=== PATIENT | female | born 1990 | race Caucasian/White ===

== ENCOUNTER → 2017-07-30 11:19 | Outpatient (CLI) | payer OTHER, MEDICAID, SELFPAY ==
--- NOTE | 2017-07-30 11:22 | DI.RAD.S_ITS ---
PROCEDURE: XR CHEST 2V INDICATIONS: chest pain TECHNIQUE: 2 views of the chest were acquired. COMPARISON: None. FINDINGS: Surgical changes and devices: None. Lungs and pleura: No pleural effusions or pneumothorax. Lungs are clear. Mediastinum: Mediastinal contours are normal. Heart size is normal. Bones and chest wall: No suspicious bony abnormalities. Soft tissues appear unremarkable. IMPRESSION: Normal for age, source of current symptoms is not seen. Dictated by: Owen Lan M.D. on 07/30/2017 at 12:15 Approved by: Owen Lan M.D. on 07/30/2017 at 12:16
== END ==
PROVIDERS: PCP Family Medicine; Visit Provider Family Medicine
DX: R07.9 Chest pain, unspecified (principal)
CPT/HCPCS: 71046

== ENCOUNTER 2018-06-14 09:48 | Emergency (ER) | payer SELFPAY ==
[2018-06-14 10:00] VITALS: BP 120/73; PULSE 66; RESP 12; TEMP 36.8; O2SAT 100
--- NOTE | 2018-06-14 10:04 | ED.ARRPALP ---
HPI - Arrhythmia/Palpitations General Chief Complaint: Arrhythmia/Palpitations Stated Complaint: Heart racing, light headed, shaky Time Seen by Provider: 06/14/18 10:03 Source: patient Mode of arrival: ambulatory Limitations: no limitations History of Present Illness HPI narrative: Patient is a 28-year-old female here for evaluation of feeling like her heart is racing and feeling lightheaded. She states the symptoms started yesterday afternoon. 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 This is not necessarily unusual for her. She states that afterwards she felt like her heart was racing. She stated that she ?tried not to get anxious ?about it. Did have some shortness of breath with it yesterday but that has now resolved. No chest pain. Today continues to have some sensation that her heart is racing but none at the time of my evaluation. She does wear a fit bit and stated that yesterday her heart rate was 103 when she was feeling the symptoms. Never had anything like this before. Related Data Allergies Allergy/AdvReac Type Severity Reaction Status Date / Time No Known Drug Allergies Allergy Unknown Verified 07/30/17 10:12 Review of Systems Constitutional Denies fever(s), Denies headache(s) and Denies weakness Comments: ?Jittery? ENT Ears, Nose, Mouth, and Throat: Denies vertigo, Reports dizziness and Denies headache(s) Cardiovascular Denies chest pain, Reports rapid heart rate, Reports palpitations and Reports dyspnea (Yesterday not today) Respiratory Reports dyspnea (Yesterday not today) Gastrointestinal Gastrointestinal: Denies abdominal pain, Denies nausea and Denies vomiting Musculoskeletal Denies myalgias and Denies arthralgias Integumentary/Breasts Denies lesions and Denies rash Neurologic Denies vertigo, Reports dizziness, Denies headache(s), Denies radicular pain and Denies weakness Endocrine Reports palpitations Hematologic/Lymphatic Denies easy bleeding and Denies easy bruising [facility] Medical History Healthy adult (Acute) Family History (Updated 09/03/17 @ 15:49 by Omaira Bermeo LPN) Grandmother Breast cancer Hypertension Mother Age: 63 Hypertension Pacemaker Sister Age: 30 Asthma Sister Age: 29 Asthma Grandfather Pacemaker Grandfather Cancer Grandmother Breast cancer Social History Smoking Status: Never smoker alcohol intake: never Family History (Updated 09/03/17 @ 15:49 by Omaira Bermeo LPN) Grandmother Breast cancer Hypertension Mother Age: 63 Hypertension Pacemaker Sister Age: 30 Asthma Sister Age: 29 Asthma Grandfather Pacemaker Grandfather Cancer Grandmother Breast cancer Social History Smoking Status: Never smoker alcohol intake: never Exam Initial Vital Signs Initial Vital Signs: Vital Signs Temperature 98.2 F 06/14/18 10:00 Pulse Rate 66 06/14/18 10:00 Respiratory Rate 12 06/14/18 10:00 Blood Pressure 120/73 06/14/18 10:00 Pulse Oximetry 100 06/14/18 10:00 Const General: cooperative, comfortable, well developed, well groomed and No acute distress Orientation: alert, awake and oriented x3 HENMT Head: normal to inspection and normocephalic Resp Effort & Inspection: normal respiratory effort Auscultation: clear to auscultation bilaterally Cardio Rate: regular rate Rhythm: regular rhythm Pulses: radial pulses present GI Inspection: non-distended Palpation: soft Skin Lesions: no lesions Rashes: no rashes Neuro General: alert, awake and oriented x3 Cognition: normal cognition Speech: speech normal Motor: muscle tone normal throughout Sensory Exam: no sensory deficits noted Extrem General: normal to inspection and capillary refill normal Psych Appearance: grossly normal and well kempt Course Orders Ordered: ED Orders 06/14/18 10:04 EKG-12 Lead Stat 06/14/18 10:10 Complete Blood Count AUTO DIFF Stat Comprehensive Metabolic Panel Stat Lipase Stat Test Serum,Qual Stat Discontinued Medications Sodium Chloride (Normal Saline 0.9%) 1,000 mls @ 1,000 mls/hr IV BOLUS ONE Stop: 06/14/18 11:10 Vital Signs - 8 hr 06/14/18 10:00 Temperature 98.2 F Pulse Rate 66 Respiratory Rate 12 Blood Pressure 120/73 Pulse Oximetry 100 MDM - Arrhythmia/Palpitations Lab Data Attestation: I reviewed the patient's lab results. Result diagrams: 06/14/18 10:10 06/14/18 10:10 Lab Results 06/14/18 06/14/18 06/14/18 Range/Units 10:10 10:10 10:10 WBC 7.2 (4.5-11.0) X10^3/uL RBC 4.82 (4.0-5.2) X10^6/uL Hgb 13.8 (12.0-16.0) g/dL Hct 41.7 (36-46) % MCV 86.4 (80-100) fL MCH 28.6 (26-34) PG MCHC 33.1 (30-36) % RDW 12.7 (11.6-14.8) % Plt Count 323 (150-400) X10^3/uL Neut % (Auto) 66.0 (50-75) % Lymph % (Auto) 23.7 L (25-40) % [place] % (Auto) 7.2 (3-14) % Eos % (Auto) 2.6 (2-4) % Baso % (Auto) 0.5 (0-2) % Neut # (Auto) 4700 (2074-5844) /uL Lymph # (Auto) 1700 (1329-0730) /uL [place] # (Auto) 500 (0-900) /uL Eos # (Auto) 200 (0-450) /uL Baso # (Auto) 0 (0-100) /uL Sodium 139 (137-145) mmol/L Potassium 4.0 (3.4-5.1) mmol/L Chloride 105 (98-107) mmol/L Carbon Dioxide 25 (22-32) mmol/L BUN 9 (7-17) mg/dL Creatinine 0.60 (0.52-1.04) mg/dL Estimated GFR > 60.0 (>60) mL/min BUN/Creatinine Ratio 15.0 (6-22) Glucose 94 (70-100) mg/dL Calcium 9.1 (8.4-10.2) mg/dL Total Bilirubin 0.2 (0.2-1.3) mg/dL AST 21 (14-36) IU/L ALT 28 (9-52) IU/L Alkaline Phosphatase 75 (38-126) U/L Total Protein 7.3 (6.3-8.2) g/dL Albumin 4.3 (3.5-5.0) g/dL Globulin 3.0 (1.7-4.1) g/dL Albumin/Globulin Ratio 1.4 (1.0-2.8) Lipase 41 (23-300) U/L Serum , Qual Negative (Negative) ECG Data Attestation: I personally reviewed and interpreted this ECG as follows: Prior ECG tracings: not available for review Interpretation: Sinus rhythm Normal axis Normal QRS Ventricular rate is [address] T wave changes MDM Narrative Medical decision making narrative: Patient's labs are unremarkable. Her EKG is unremarkable. her monitoring here in the emergency department has been unremarkable. I suspect that her symptoms were related to the caffeine that she was drinking yesterday. We did discuss return precautions and follow-up instructions. She expressed understanding and agreement with plan. Discharge Plan Departure Patient Disposition: Home Clinical Impression: Palpitations Instructions: DI for Palpitations Activity Restrictions/Additional Instructions: You have no restrictions on your activities. like we discussed please talk with her primary doctor about the indications for a Holter monitor. Return to the emergency department for any new or worsening symptoms Referrals: Yana Guerrero DO [Primary Care Provider] -
[2018-06-14 10:21] LABS: Add Manual Diff / Slide Review NO; Basophils Absolute Auto 0 /uL (0-100); Basophils Percent Auto 0.5 % (0-2); Eosinophils Absolute Auto 200 /uL (0-450); Eosinophils Percent Auto 2.6 % (2-4); Hematocrit 41.7 % (36-46); Hemoglobin 13.8 g/dL (12.0-16.0); Lymphocytes Absolute Auto 1700 /uL (1100-4500); Lymphocytes Percent Auto 23.7 % (25-40); Mean Corpuscular HGB Conc 33.1 % (30-36); Mean Corpuscular Hemoglobin 28.6 PG (26-34); Mean Corpuscular Volume 86.4 fL (80-100); Monocytes Absolute Auto 500 /uL (0-900); Monocytes Percent Auto 7.2 % (3-14); Neutrophils Absolute Auto 4700 /uL (1500-7000); Platelet Count 323 X10^3/uL (150-400); Red Blood Cell Count 4.82 X10^6/uL (4.0-5.2); Red Cell Distribution Width 12.7 % (11.6-14.8); White Blood Cell Count 7.2 X10^3/uL (4.5-11.0)
[2018-06-14 10:30] LABS: Alanine Aminotransferase 28 IU/L (9-52); Albumin 4.3 g/dL (3.5-5.0); Albumin Globulin Ratio 1.4 (1.0-2.8); Alkaline Phosphatase 75 U/L (38-126); Aspartate Aminotransferase 21 IU/L (14-36); Bilirubin Total 0.2 mg/dL (0.2-1.3); Blood Urea Nitrogen 9 mg/dL (7-17); Calcium 9.1 mg/dL (8.4-10.2); Carbon Dioxide 25 mmol/L (22-32); Chloride 105 mmol/L (98-107); Estimated Glomerular Filt Rate > 60.0 mL/min (>60); Glucose 94 mg/dL (70-100); HEMOLYSIS < 15 (0-50); Lipase 41 U/L (23-300); Sodium 139 mmol/L (137-145); Total Protein 7.3 g/dL (6.3-8.2)
[2018-06-14 10:47] LABS: Pregnancy Test Serum,Qual Negative (Negative)
[2018-06-14 11:42] VITALS: BP 107/75; PULSE 91; RESP 12; O2SAT 99
== END 2018-06-14 11:42 | disposition home or self-care (01) ==
PROVIDERS: Emergency Provider Emergency Medicine; PCP Family Medicine
DX: R00.2 Palpitations (principal); R42 Dizziness and giddiness; R06.02 Shortness of breath; R25.1 Tremor, unspecified
CPT/HCPCS: 36591; 80053; 83690; 84703; 85025; 93005; 93041; 99283; 99284

== ENCOUNTER → 2018-08-02 12:43 | Outpatient (CLI) | payer OTHER, SELFPAY ==
--- NOTE | 2018-08-16 08:42 | PM.CARDMON.1 ---
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
== END ==
PROVIDERS: PCP Family Medicine; Visit Provider Hospitalist
DX: R00.2 Palpitations (principal)
CPT/HCPCS: 0296T; 0298T

== ENCOUNTER → 2018-12-09 11:58 | Outpatient (CLI) | payer OTHER, SELFPAY ==
[2018-12-09 12:19] LABS: Bacteria Urine None Seen
[2018-12-09 12:24] LABS: Add Manual Diff / Slide Review NO; Basophils Absolute Auto 0 /uL (0-100); Basophils Percent Auto 0.5 % (0-2); Eosinophils Absolute Auto 300 /uL (0-450); Eosinophils Percent Auto 4.3 % (2-4); Hematocrit 42.3 % (36-46); Hemoglobin 14.4 g/dL (12.0-16.0); Lymphocytes Absolute Auto 2300 /uL (1100-4500); Lymphocytes Percent Auto 30.6 % (25-40); Mean Corpuscular Volume 85.3 fL (80-100); Monocytes Absolute Auto 600 /uL (0-900); Monocytes Percent Auto 8.2 % (3-14); Neutrophils Absolute Auto 4200 /uL (1500-7000); Neutrophils Percent Auto 56.4 % (50-75); Platelet Count 378 X10^3/uL (150-400); Red Blood Cell Count 4.95 X10^6/uL (4.0-5.2); Red Cell Distribution Width 12.5 % (11.6-14.8); White Blood Cell Count 7.5 X10^3/uL (4.5-11.0)
[2018-12-09 12:50] LABS: Alanine Aminotransferase 31 IU/L (<35); Albumin 4.6 g/dL (3.5-5.0); Albumin Globulin Ratio 1.8 (1.0-2.8); Alkaline Phosphatase 83 U/L (38-126); Aspartate Aminotransferase 23 IU/L (14-36); Bilirubin Total 0.4 mg/dL (0.2-1.3); Blood Urea Nitrogen 12 mg/dL (7-17); Calcium 9.9 mg/dL (8.4-10.2); Carbon Dioxide 30 mmol/L (22-32); Chloride 102 mmol/L (98-107); Cholesterol 194 mg/dL (140-199); Estimated Glomerular Filt Rate > 60.0 mL/min (>60); Globulin 2.6 g/dL (1.7-4.1); Glucose 77 mg/dL (70-100); HDL Cholesterol 42 mg/dL (40-60); HEMOLYSIS < 15 (0-50); LDL Cholesterol Calculated 139 mg/dL (<100); Potassium 4.8 mmol/L (3.4-5.1); Sodium 141 mmol/L (137-145); Total Protein 7.2 g/dL (6.3-8.2); Triglycerides 66 mg/dL (35-150)
[2018-12-09 13:03] LABS: Appearance Urine UA SL CLOUDY; Bilirubin Urine UA NEGATIVE (NEGATIVE); Color Urine UA YELLOW; Glucose Urine UA NEGATIVE (Negative); Ketones Urine UA NEGATIVE (NEGATIVE); Leukocyte Esterase Urine UA 1+ (NEGATIVE); Nitrite Urine UA NEGATIVE (Negative); Occult Blood Urine UA NEGATIVE (Negative); Protein Urine UA NEGATIVE (Negative); Urobilinogen Urine UA 0.2 E.U./dL (0.2)
[2018-12-09 13:14] LABS: Culture Indicated Urine Specimen Cultured; RBC Urine 0-1/HPF (0-5/HPF); Squamous Epithelial Cell Urine 1-5 /HPF (0-5/HPF); WBC Urine 1-5/HPF (0-5/HPF)
[2018-12-09 13:18] LABS: Thyroid Stimulating Hormone 0.77 uIU/mL (0.47-4.68)
== END ==
PROVIDERS: PCP Family Medicine; Visit Provider Family Medicine
DX: Z00.00 Encounter for general adult medical examination without abnormal findings (principal)
CPT/HCPCS: 36415; 80053; 80061; 81001; 84443; 85025; 87086

== ENCOUNTER 2018-12-28 11:25 | Emergency (ER) | payer OTHER, SELFPAY ==
[2018-12-28 11:36] VITALS: BP 117/72; PULSE 86; RESP 17; TEMP 36.7; O2SAT 100; BMI 23.6
--- NOTE | 2018-12-28 11:47 | ED.ABDPAIN ---
HPI - Abdominal Pain <Jana HerronMILLIE - Last Filed: 12/28/18 14:05> General Chief Complaint: Abdominal Pain Stated Complaint: Acid Reflux, Rt Abd pain Time Seen by Provider: 12/28/18 11:27 Source: patient Mode of arrival: Ambulatory Limitations: no limitations History of Present Illness HPI narrative: 28-year-old female with a history of GERD for the past 6 months, presents emergency department today for worsening abdominal pain and acid reflux over the past 2 weeks. She states she has seen her primary care provider multiple times about this issue, was recently for to Gastroenterology, and has an endoscopy scope scheduled on Wednesday. However, she reports that her pain is intermittently worsened over the past 2 weeks. She states it is an 8/10 burning pain to her epigastric region and down her right side. She denies aggravating or alleviating factors, it is not made worse by eating. She states she ?occasionally spits up food and has associated nausea. She reports increased bloating and gas over the past few weeks. She denies vomiting or diarrhea. Patient's last bowel movement was this morning and she stated it was normal. Patient states she has been to [place] 3 times in the past year and is worried about having a parasite. She has had a left upper chest pain which she describes as a dull aching 2/10 that is worse with her GERD symptoms, she states she has had this for the past year. She has been taking 40 mg of omeprazole twice a day, digestive enzymes, and probiotics. Patient reports she is allergic to Zantac. She denies headaches, chills, fevers, shortness of breath, cough, dysuria, vaginal discharge, or other concerns. Related Data Home Medications Medication Instructions Recorded Confirmed sodium chloride 0.65 % nasal spray 2 spray NASAL BID PRN ml 11/09/18 12/28/18 aerosol tbksvfevsblo-Jp-jidn-minerals 1 tab PO DAILY 12/15/18 12/28/18 omeprazole 20 mg capsule,delayed 20 mg PO DAILY cap 12/15/18 12/28/18 release escitalopram oxalate 10 mg PO DAILY 12/28/18 12/28/18 norgestrel-ethinyl estradiol 1 tab PO DAILY 12/28/18 12/28/18 [Yanna (28)] Previous Rx's Medication Instructions Recorded baclofen 10 mg tablet 10 mg PO BID #14 tab 12/16/18 omeprazole 40 mg capsule,delayed 40 mg PO BID #30 cap 12/16/18 release Allergies Allergy/AdvReac Type Severity Reaction Status Date / Time ranitidine [From Zantac] Allergy Mild throat Verified 12/28/18 11:36 swelling Review of Systems <MILLIE Wilson - Last Filed: 12/28/18 14:05> Review of Systems Narrative: REVIEW OF SYSTEMS: GENERAL: Denies fever, chills, malaise, or wt. loss. HENT: No head trauma, sore throat, or dysphagia. EYES: No loss of vision, double vision, eye pain, or irritation. CARDIOVASCULAR: No palpitations, or orthopnea. RESPIRATORY: No shortness of breath or cough. GASTROINTESTINAL: Complains of abdominal pain, see HPI GENITOURINARY: No flank pain, urinary incontinence, hesitancy, frequency, or dysuria. No vaginal discharge or dyspareunia. Denies concerns for STIs MUSCULOSKELETAL: No pain, weakness, or trauma. INTEGUMENTARY: No rash, lesions, or pruritus. NEURO: No numbness, tingling, memory loss, confusion, or headaches. PSYCH: No behavior or mood changes. Patient History <MILLIE Wilson - Last Filed: 12/28/18 14:05> Medical History Depression (Acute 08/2018) GERD (gastroesophageal reflux disease) (Acute 08/2018) Healthy adult (Acute) Family History Grandmother Breast cancer Hypertension Mother Age: 64 Hypertension Pacemaker Sister Age: 31 Asthma Sister Age: 30 Asthma Grandfather Pacemaker Grandfather Cancer Grandmother Breast cancer Social History Smoking Status: Never smoker alcohol intake: never Substance Use Type: does not use Exam <MILLIE Wilson - Last Filed: 12/28/18 14:05> Initial Vital Signs Initial Vital Signs: Vital Signs Temperature 98.1 F 12/28/18 11:36 Pulse Rate 86 12/28/18 11:36 Respiratory Rate 17 12/28/18 11:36 Blood Pressure 117/72 11/20/19 11:36 Pulse Oximetry 100 12/28/18 11:36 PHYSICAL EXAMINATION: GENERAL: Well groomed, alert, and cooperative. Answers questions promptly and appropriately. Vital signs noted. HENT: Normocephalic, atraumatic. Hearing intact. Oral mucosa is pink and moist. EYES: Conjunctiva pink, sclera white, no periorbital swelling. CARDIOVASCULAR: S1 and S2 sounds normal. Regular rate and rhythm, no murmurs, clicks, or bruits. No pedal edema. RESPIRATORY: Normal respiratory rate, trachea midline, airway patent. No stridor, nasal flaring or accessory muscle use. Lungs are clear in all davis without wheeze, rhonchi, or crackles. GASTROINTESTINAL: Bowel sounds normoactive. Abdomen is soft and diffuse mild abdominal tenderness with deep palpation. No organomegaly, no palpable masses. GENITALURINARY: No flank tenderness. MUSCULOSKELETAL: Normal gait and coordination. Equal tone and mass bilaterally. EXTREMITIES: CMS intact, no pedal edema. SKIN: Warm, dry, soft, appropriate color for ethnicity. No lesions, rashes, or wounds. NEURO: Alert and Oriented X 3. Good coordination. No ataxia, or sensory deficits, or cognitive issues. PSYCH: Appropriate affect and mood. <Vaughn Waite DO - Last Filed: 12/28/18 14:31> Initial Vital Signs Initial Vital Signs: Vital Signs Temperature 98.1 F 12/28/18 11:36 Pulse Rate 86 12/28/18 11:36 Respiratory Rate 17 12/28/18 11:36 Blood Pressure 117/72 12/28/18 11:36 Pulse Oximetry 100 12/28/18 11:36 Course <MILLIE Wilson - Last Filed: 12/28/18 14:05> Course Course Narrative: Patient was given a GI cocktail and ondansetron in the emergency department, she reports slight improvement in her abdominal discomfort. Orders Ordered: ED Orders 12/28/18 11:44 EKG-12 Lead Stat 12/28/18 11:50 Urine Culture Stat Urine Microscopic Stat 12/28/18 12:03 Complete Blood Count AUTO DIFF Stat Comprehensive Metabolic Panel Stat Lipase Stat 12/28/18 12:27 US abdomen limited Stat 12/28/18 12:35 CT abdomen pelvis w con Stat Discontinued Medications Al Hydrox/Mg Hydrox/Simethicone 20 ml/ Lidocaine HCl 15 ml 0 ml PO NOW ONE Stop: 12/28/18 13:13 Last Admin: 12/28/18 13:29 Dose: 35 ml Documented by: MICHELE Sodium Chloride (Normal Saline 0.9%) 1,000 mls @ 1,000 mls/hr IV BOLUS ONE Stop: 12/28/18 12:43 Last Infusion: 12/28/18 13:33 Dose: 0 mls/hr Documented by: Admin: 12/28/18 12:07 Dose: 1,000 mls/hr Documented by: MICHELE Ondansetron HCl (Zofran) 4 mg IV NOW ONE Stop: 12/28/18 11:45 Last Admin: 12/28/18 12:08 Dose: 4 mg Documented by: MICHELE Ondansetron HCl (Zofran) 4 mg IV NOW ONE Stop: 12/28/18 13:13 Last Admin: 12/28/18 13:34 Dose: Not Given Documented by: MICHELE Ondansetron HCl (Zofran Odt) 4 mg SL NOW ONE Stop: 12/28/18 13:57 Consultations Consultation #1: Patient was staffed with Dr. Waite. Vital Signs Vital signs: Vital Signs - 8 hr 12/28/18 11:36 12/28/18 12:16 12/28/18 13:36 Temperature 98.1 F Pulse Rate 86 67 68 Respiratory Rate 17 18 Blood Pressure 117/72 Blood Pressure [Left Arm] 118/68 115/75 Pulse Oximetry 100 100 100 <Vaughn Waite, - Last Filed: 12/28/18 14:31> Orders Ordered: ED Orders 12/28/18 11:44 EKG-12 Lead Stat 12/28/18 11:50 Urine Culture Stat Urine Microscopic Stat 12/28/18 12:03 Complete Blood Count AUTO DIFF Stat Comprehensive Metabolic Panel Stat Lipase Stat 12/28/18 12:27 US abdomen limited Stat 12/28/18 12:35 CT abdomen pelvis w con Stat Discontinued Medications Al Hydrox/Mg Hydrox/Simethicone 20 ml/ Lidocaine HCl 15 ml 0 ml PO NOW ONE Stop: 12/28/18 13:13 Last Admin: 12/28/18 13:29 Dose: 35 ml Documented by: MICHELE Sodium Chloride (Normal Saline 0.9%) 1,000 mls @ 1,000 mls/hr IV BOLUS ONE Stop: 12/28/18 12:43 Last Infusion: 12/28/18 13:33 Dose: 0 mls/hr Documented by: Admin: 12/28/18 12:07 Dose: 1,000 mls/hr Documented by: MICHELE Ondansetron HCl (Zofran) 4 mg IV NOW ONE Stop: 12/28/18 11:45 Last Admin: 12/28/18 12:08 Dose: 4 mg Documented by: MICHELE Ondansetron HCl (Zofran) 4 mg IV NOW ONE Stop: 12/28/18 13:13 Last Admin: 12/28/18 13:34 Dose: Not Given Documented by: MICHELE Ondansetron HCl (Zofran Odt) 4 mg SL NOW ONE Stop: 12/28/18 13:57 Vital Signs Vital signs: Vital Signs - 8 hr 12/28/18 11:36 12/28/18 12:16 12/28/18 13:36 Temperature 98.1 F Pulse Rate 86 67 68 Respiratory Rate 17 18 Blood Pressure 117/72 Blood Pressure [Left Arm] 118/68 115/75 Pulse Oximetry 100 100 100 MDM - Abdominal Pain <MILLIE Wilson - Last Filed: 12/28/18 14:05> Medical Records Attestation: I reviewed the patient's medical records. Lab Data Attestation: I reviewed the patient's lab results. Result diagrams: 12/28/18 12:03 12/28/18 12:03 Labs: Lab Results 12/28/18 12/28/18 12/28/18 Range/Units 11:50 12:03 12:03 WBC 6.9 (4.5-11.0) X10^3/uL RBC 4.51 (4.0-5.2) X10^6/uL Hgb 13.2 (12.0-16.0) g/dL Hct 38.3 (36-46) % MCV 84.9 (80-100) fL MCH 29.3 (26-34) PG MCHC 34.5 (30-36) % RDW 12.6 (11.6-14.8) % Plt Count 318 (150-400) X10^3/uL Neut % (Auto) 68.4 (50-75) % Lymph % (Auto) 19.2 L (25-40) % [place] % (Auto) 8.4 (3-14) % Eos % (Auto) 3.6 (2-4) % Baso % (Auto) 0.4 (0-2) % Neut # (Auto) 4700 (4184-9268) /uL Lymph # (Auto) 1300 (3153-0121) /uL [place] # (Auto) 600 (0-900) /uL Eos # (Auto) 200 (0-450) /uL Baso # (Auto) 0 (0-100) /uL Sodium 140 (137-145) mmol/L Potassium 4.2 (3.4-5.1) mmol/L Chloride 106 (98-107) mmol/L Carbon Dioxide 26 (22-32) mmol/L BUN 8 (7-17) mg/dL Creatinine 0.70 (0.52-1.04) mg/dL Estimated GFR > 60.0 (>60) mL/min BUN/Creatinine Ratio 11.4 (6-22) Glucose 94 (70-100) mg/dL Calcium 9.2 (8.4-10.2) mg/dL Total Bilirubin 0.3 (0.2-1.3) mg/dL AST 30 (14-36) IU/L ALT 31 (<35) IU/L Alkaline Phosphatase 92 (38-126) U/L Total Protein 7.5 (6.3-8.2) g/dL Albumin 4.3 (3.5-5.0) g/dL Globulin 3.2 (1.7-4.1) g/dL Albumin/Globulin Ratio 1.3 (1.0-2.8) Lipase 41 (23-300) U/L Urine RBC None seen (0-5/HPF) Urine WBC 5-10/hpf H (0-5/HPF) Ur Squamous Epith Cells 1-5 /hpf (0-5/HPF) Amorphous Sediment 1+ Urine Bacteria Few (2-10) H (None) Urine Mucus 1+ H (Negative) Ur Culture Indicated? Specimen cultured Point of care testing: Point of Care Testing Test Results Negative Urine Dip Bedside Urine Glucose Negative Bedside Urine Bilirubin - Negative Bedside Urine Ketone - Negative Urine Specific [place] 1.005 Bedside Urine Occult Blood - Negative Bedside Urine pH 6.0 Bedside Urine Protein - Negative Bedside Urine Urobilinogen - Negative Bedside Urine Nitrite - Negative Bedside Urine Leukocytes ++ 125 Esterase Imaging Data US - abdomen: Radiologist's impression: [address] [address] Ultrasound Report Signed Patient: Annika Stevenson [facility]#: [id number] : 1990Acct:[id number] Age/Sex: 28 / FDate of Service: 12/28/18 Loc: ED Accession Number: [id number] Procedure: US abdomen limited Ordering Provider: Jana Herron PROCEDURE: US ABDOMEN LIMITED INDICATIONS: RIGHT UPPER QUADRANT PAIN TECHNIQUE: Real-time focused scanning was performed of the abdomen, with image documentation. COMPARISON: [facility], CT, CT ABDOMEN PELVIS W CON, 12/28/2018, 12:29. FINDINGS: Imaged portions of the liver appear to be within normal limits. No focal liver lesions are evident. The gallbladder is also within normal limits without cholelithiasis or gallbladder wall inflammation. The common bile duct is normal in size at 3 mm. The pancreas appears to be within normal limits. Please not that the right kidney was not adequately imaged. Incidental note is made of a prominent wall bowel loop demonstrating peristalsis within the right lower artery, which is not adequately characterized. The appendix is not clearly seen. IMPRESSION: 1. No cholelithiasis or evidence of acute cholecystitis. 2. Abnormal bowel loop within the right lower quadrant. Please see the dedicated CT of the abdomen and pelvis from 12/28/18 for complete details. Dictated by: Jose Corrales M.D. on 12/28/2018 at 11:57 Approved by: Jose Corrales M.D. on 12/28/2018 at 11:59 CT-Abd: Radiologist's impression: [address] [address] [address] Scan Report Signed Patient: Annika Setvenson [facility]#: [id number] : 1990Acct:[id number] Age/Sex: 28 / FDate of Service: 12/28/18 Loc: ED Accession Number: [id number] Procedure: CT abdomen pelvis w con Ordering Provider: Jana Herron PROCEDURE: CT ABDOMEN PELVIS W CON INDICATIONS: right lower quad pain TECHNIQUE: After the administration of oral and intravenous contrast, 5 mm thick sections acquired from the diaphragms to the symphysis. 5 mm thick coronal and sagittal reformats were performed. For radiation dose reduction, the following was used: automated exposure control, adjustment of mA and/or kV according to patient size. COMPARISON: [facility], , US ABDOMEN LIMITED, 12/28/2018, 12:13. FINDINGS: Image quality: Diagnostic ABDOMEN: Lung bases: Lung bases are clear. Heart size is normal. Solid organs: The liver is slightly hypodense when compared to the spleen, which may be related to timing of the contrast bolus. The gallbladder is within normal limits. The spleen, adrenals, pancreas, and bilateral kidneys are within normal limits. There is no hydronephrosis or definite renal calculus. Peritoneum and bowel: The stomach is unremarkable. The small bowel loops are nondilated. There is an abnormal enhancing bowel loop identified within the right lower quadrant, which correlates to the abnormal bowel loop evident on the ultrasound images, which is compatible with a terminal ileum. The adjacent appendix (image 59, series 2) is normal in size. There is stool are identified throughout the colon. There is no bowel obstruction. No free fluid or loculated fluid collection is seen within the abdomen. There is no free air. Nodes and vessels: No retroperitoneal or mesenteric adenopathy. Aorta and inferior vena cava are normal in caliber. Bones: No acute fracture or suspicious osseous lesion is evident. PELVIS: Genitourinary: Nonspecific moderate wall thickening involving the fundal portion of the urinary bladder (image 36, series 5) is noted. No bladder calculi are identified. The uterus and ovaries are not well evaluated, but are not enlarged. Miscellaneous: Small amount of free fluid is seen within the pelvis. There is no loculated fluid collection or definite free air. No pelvic adenopathy or inguinal hernias are evident. Bones: No suspicious bony lesions. No vertebral body compression fractures. IMPRESSION: 1. Prominent thickening and wall enhancement of the terminal ileum is suggestive most suggestive of infectious ileitis. However, an inflammatory bowel process such as Crohn's disease or ulcerative colitis are difficult to exclude and clinical correlation is recommended. 2. Normal appendix. 3. Minimal free fluid within the pelvis may be physiologic or reactive to the inflammatory process involving the distal ileum. 4. No bowel obstruction or intraperitoneal abscess. 5. Possible mild hepatic steatosis. Dictated by: Jose Corrales M.D. on 12/28/2018 at 12:00 Approved by: Jose Corrales M.D. on 12/28/2018 at 12:05 ECG Data Interpretation: Normal sinus rhythm, rate 67, IL interval 142, QTC 395. No ST elevation or ST depression. No ectopy. T-wave inversion noted to V1. EKG also read by Dr. Waite. MDM Narrative Medical decision making narrative: This is a 28-year-old female who has been seen in her primary care provider's office multiple times for the past 6 months for symptoms of GERD and abdominal pain. She has been referred to a cell attendant helper and has endoscope scheduled for this Wednesday. Differential includes GERD (description of heartburn and ongoing symptoms), hiatal hernia, gallbladder etiology (less likely as lipase is within normal limits and ultrasound shows no stones or sludge), and infectious parasite (possible due to recent travel to [place], complains of GERD, and inflammatory process of the ileus as seen on abdominal CT--however patient was unable to give us a stool sample at this time), or appendicitis (less likely as white blood cell count is within normal limits and no inflammatory process of appendicitis was noted on CT and no systemic symptoms such as fever), autoimmune disorder such as Crohn's (possible due to inflammation seen on CT however, patient denies any blood or mucus in stool but I cannot rule this out at this time.). Patient was encouraged to communicate with her surgeon over the next day to discuss image results and the possibility of a colonoscopy if indicated. She was also encouraged to discussed a possible stool sample with her primary care provider to rule out any parasite infection as she was unable to provide this today. Patient was encouraged to continue taking her PPIs as directed. Return precautions given for new or worsening symptoms. <Vaughn Waite, DO - Last Filed: 12/28/18 14:31> Lab Data Labs: Lab Results 12/28/18 12/28/18 12/28/18 Range/Units 11:50 12:03 12:03 WBC 6.9 (4.5-11.0) X10^3/uL RBC 4.51 (4.0-5.2) X10^6/uL Hgb 13.2 (12.0-16.0) g/dL Hct 38.3 (36-46) % MCV 84.9 (80-100) fL MCH 29.3 (26-34) PG MCHC 34.5 (30-36) % RDW 12.6 (11.6-14.8) % Plt Count 318 (150-400) X10^3/uL Neut % (Auto) 68.4 (50-75) % Lymph % (Auto) 19.2 L (25-40) % [place] % (Auto) 8.4 (3-14) % Eos % (Auto) 3.6 (2-4) % Baso % (Auto) 0.4 (0-2) % Neut # (Auto) 4700 (6888-5905) /uL Lymph # (Auto) 1300 (7186-2128) /uL [place] # (Auto) 600 (0-900) /uL Eos # (Auto) 200 (0-450) /uL Baso # (Auto) 0 (0-100) /uL Sodium 140 (137-145) mmol/L Potassium 4.2 (3.4-5.1) mmol/L Chloride 106 (98-107) mmol/L Carbon Dioxide 26 (22-32) mmol/L BUN 8 (7-17) mg/dL Creatinine 0.70 (0.52-1.04) mg/dL Estimated GFR > 60.0 (>60) mL/min BUN/Creatinine Ratio 11.4 (6-22) Glucose 94 (70-100) mg/dL Calcium 9.2 (8.4-10.2) mg/dL Total Bilirubin 0.3 (0.2-1.3) mg/dL AST 30 (14-36) IU/L ALT 31 (<35) IU/L Alkaline Phosphatase 92 (38-126) U/L Total Protein 7.5 (6.3-8.2) g/dL Albumin 4.3 (3.5-5.0) g/dL Globulin 3.2 (1.7-4.1) g/dL Albumin/Globulin Ratio 1.3 (1.0-2.8) Lipase 41 (23-300) U/L Urine RBC None seen (0-5/HPF) Urine WBC 5-10/hpf H (0-5/HPF) Ur Squamous Epith Cells 1-5 /hpf (0-5/HPF) Amorphous Sediment 1+ Urine Bacteria Few (2-10) H (None) Urine Mucus 1+ H (Negative) Ur Culture Indicated? Specimen cultured Point of care testing: Point of Care Testing Test Results Negative Urine Dip Bedside Urine Glucose Negative Bedside Urine Bilirubin - Negative Bedside Urine Ketone - Negative Urine Specific [place] 1.005 Bedside Urine Occult Blood - Negative Bedside Urine pH 6.0 Bedside Urine Protein - Negative Bedside Urine Urobilinogen - Negative Bedside Urine Nitrite - Negative Bedside Urine Leukocytes ++ 125 Esterase Discharge Plan Departure Patient Disposition: Home Clinical Impression: Ileitis GERD (gastroesophageal reflux disease) Qualifiers: Esophagitis presence: esophagitis presence not specified Qualified Code(s): K21.9 - Gastro-esophageal reflux disease without esophagitis Discharge Date/Time: 12/28/18 14:16 Instructions: DI for Abdominal Pain-Adult Activity Restrictions/Additional Instructions: Thank you for entrusting me with your care today. As discussed, your CT scan shows some inflammation in your small intestine. I suggest calling her cell attendant helper/surgeon to discuss a possible colonoscopy as well to further investigate the inflammatory issues. I also recommend talking to her primary care provider or cell attendant helper about a possible stool panel study to look for infection as you were not able to provide a sample with us today. Please continue to take your medication as instructed. Return to the emergency department for new or worsening symptoms such as uncontrollable vomiting, blood in her stool, blood in her vomit, severe chest pain, shortness of breath, or high fevers. Prescriptions: No Action baclofen 10 mg tablet 10 mg PO BID Qty: 14 RF: 0 omeprazole 40 mg capsule,delayed release(DR/EC) 40 mg PO BID Qty: 30 RF: 0 sodium chloride [Saline Mist] 0.65 % aerosol,spray 2 spray NASAL BID PRN (Reason: Congestion) RF: 0 omeprazole 20 mg capsule,delayed release(DR/EC) 20 mg PO DAILY RF: 0 Multiple Vitamin, Womens Tablet 1 tab PO DAILY RF: 0 [place] (28) 0.3-30 mg-mcg tablet 1 tab PO DAILY RF: 0 escitalopram oxalate 10 mg tablet 10 mg PO DAILY RF: 0 Referrals: Yana Guerrero DO [Primary Care Provider] - <Vaughn Waite DO - Last Filed: 12/28/18 14:31> Sign Out Provider Sign Out Attestation: Dr Waite Co-Sign Statement: I was available for consultation during this patient's emergency department visit. This chart is signed by myself for administrative purposes only. I did not have direct contact with this patient during this visit. They were seen independently by the APC.
[2018-12-28] MEDS: SODIUM CHLORIDE 0.9% 1,000 ML 1000 ML IV (12:07)
[2018-12-28] MEDS: ONDANSETRON 4 MG/2 ML INJ IV (12:08)
[2018-12-28 12:16] VITALS: BP 118/68; PULSE 67; O2SAT 100
[2018-12-28 12:19] LABS: Add Manual Diff / Slide Review NO; Basophils Absolute Auto 0 /uL (0-100); Basophils Percent Auto 0.4 % (0-2); Eosinophils Absolute Auto 200 /uL (0-450); Eosinophils Percent Auto 3.6 % (2-4); Hematocrit 38.3 % (36-46); Hemoglobin 13.2 g/dL (12.0-16.0); Lymphocytes Absolute Auto 1300 /uL (1100-4500); Lymphocytes Percent Auto 19.2 % (25-40); Mean Corpuscular HGB Conc 34.5 % (30-36); Mean Corpuscular Hemoglobin 29.3 PG (26-34); Mean Corpuscular Volume 84.9 fL (80-100); Monocytes Absolute Auto 600 /uL (0-900); Monocytes Percent Auto 8.4 % (3-14); Neutrophils Absolute Auto 4700 /uL (1500-7000); Neutrophils Percent Auto 68.4 % (50-75); Platelet Count 318 X10^3/uL (150-400); Red Blood Cell Count 4.51 X10^6/uL (4.0-5.2); Red Cell Distribution Width 12.6 % (11.6-14.8); White Blood Cell Count 6.9 X10^3/uL (4.5-11.0)
[2018-12-28 12:27] LABS: Alanine Aminotransferase 31 IU/L (<35); Albumin 4.3 g/dL (3.5-5.0); Albumin Globulin Ratio 1.3 (1.0-2.8); Alkaline Phosphatase 92 U/L (38-126); Aspartate Aminotransferase 30 IU/L (14-36); BUN Creatinine Ratio 11.4 (6-22); Bilirubin Total 0.3 mg/dL (0.2-1.3); Blood Urea Nitrogen 8 mg/dL (7-17); Calcium 9.2 mg/dL (8.4-10.2); Carbon Dioxide 26 mmol/L (22-32); Chloride 106 mmol/L (98-107); Estimated Glomerular Filt Rate > 60.0 mL/min (>60); Globulin 3.2 g/dL (1.7-4.1); Glucose 94 mg/dL (70-100); HEMOLYSIS 19 (0-50); Lipase 41 U/L (23-300); Potassium 4.2 mmol/L (3.4-5.1); Sodium 140 mmol/L (137-145); Total Protein 7.5 g/dL (6.3-8.2)
--- NOTE | 2018-12-28 12:27 | DI.US.S_ITS ---
PROCEDURE: US ABDOMEN LIMITED INDICATIONS: RIGHT UPPER QUADRANT PAIN TECHNIQUE: Real-time focused scanning was performed of the abdomen, with image documentation. COMPARISON: [facility], CT, CT ABDOMEN PELVIS W CON, 12/28/2018, 12:29. FINDINGS: Imaged portions of the liver appear to be within normal limits. No focal liver lesions are evident. The gallbladder is also within normal limits without cholelithiasis or gallbladder wall inflammation. The common bile duct is normal in size at 3 mm. The pancreas appears to be within normal limits. Please not that the right kidney was not adequately imaged. Incidental note is made of a prominent wall bowel loop demonstrating peristalsis within the right lower artery, which is not adequately characterized. The appendix is not clearly seen. IMPRESSION: 1. No cholelithiasis or evidence of acute cholecystitis. 2. Abnormal bowel loop within the right lower quadrant. Please see the dedicated CT of the abdomen and pelvis from 12/28/18 for complete details. Dictated by: Jose Corrales M.D. on 12/28/2018 at 11:57 Approved by: Jose Corrales M.D. on 12/28/2018 at 11:59
[2018-12-28 12:33] LABS: RBC Urine None Seen (0-5/HPF)
--- NOTE | 2018-12-28 12:35 | DI.CT.S_ITS ---
PROCEDURE: CT ABDOMEN PELVIS W CON INDICATIONS: right lower quad pain TECHNIQUE: After the administration of oral and intravenous contrast, 5 mm thick sections acquired from the diaphragms to the symphysis. 5 mm thick coronal and sagittal reformats were performed. For radiation dose reduction, the following was used: automated exposure control, adjustment of mA and/or kV according to patient size. COMPARISON: [facility], , ABDOMEN LIMITED, 12/28/2018, 12:13. FINDINGS: Image quality: Diagnostic ABDOMEN: Lung bases: Lung bases are clear. Heart size is normal. Solid organs: The liver is slightly hypodense when compared to the spleen, which may be related to timing of the contrast bolus. The gallbladder is within normal limits. The spleen, adrenals, pancreas, and bilateral kidneys are within normal limits. There is no hydronephrosis or definite renal calculus. Peritoneum and bowel: The stomach is unremarkable. The small bowel loops are nondilated. There is an abnormal enhancing bowel loop identified within the right lower quadrant, which correlates to the abnormal bowel loop evident on the ultrasound images, which is compatible with a terminal ileum. The adjacent appendix (image 59, series 2) is normal in size. There is stool are identified throughout the colon. There is no bowel obstruction. No free fluid or loculated fluid collection is seen within the abdomen. There is no free air. Nodes and vessels: No retroperitoneal or mesenteric adenopathy. Aorta and inferior vena cava are normal in caliber. Bones: No acute fracture or suspicious osseous lesion is evident. PELVIS: Genitourinary: Nonspecific moderate wall thickening involving the fundal portion of the urinary bladder (image 36, series 5) is noted. No bladder calculi are identified. The uterus and ovaries are not well evaluated, but are not enlarged. Miscellaneous: Small amount of free fluid is seen within the pelvis. There is no loculated fluid collection or definite free air. No pelvic adenopathy or inguinal hernias are evident. Bones: No suspicious bony lesions. No vertebral body compression fractures. IMPRESSION: 1. Prominent thickening and wall enhancement of the terminal ileum is suggestive most suggestive of infectious ileitis. However, an inflammatory bowel process such as Crohn's disease or ulcerative colitis are difficult to exclude and clinical correlation is recommended. 2. Normal appendix. 3. Minimal free fluid within the pelvis may be physiologic or reactive to the inflammatory process involving the distal ileum. 4. No bowel obstruction or intraperitoneal abscess. 5. Possible mild hepatic steatosis. Dictated by: Jose Corrales M.D. on 12/28/2018 at 12:00 Approved by: Jose Corrales M.D. on 12/28/2018 at 12:05
[2018-12-28 12:49] LABS: Amorphous Sediment Urine 1+; Bacteria Urine Few (2-10); Squamous Epithelial Cell Urine 1-5 /HPF (0-5/HPF); WBC Urine 5-10/HPF (0-5/HPF)
[2018-12-28 12:50] LABS: Culture Indicated Urine Specimen Cultured; Mucus Urine 1+ (Negative)
[2018-12-28] MEDS: MAG HYDROX/ALUMINUM/SIMETH SUS 20 ML, LIDOCAINE VISCOUS 2% 15 ML PO (13:29)
[2018-12-28 13:36] VITALS: BP 115/75; PULSE 68; RESP 18; O2SAT 100
== END 2018-12-28 14:16 | disposition home or self-care (01) ==
PROVIDERS: Emergency Provider Nurse Practitioner; PCP Family Medicine
DX: K52.9 Noninfective gastroenteritis and colitis, unspecified (principal); K21.9 Gastro-esophageal reflux disease without esophagitis
CPT/HCPCS: 36415; 74177; 76705; 80053; 81003; 81015; 81025; 83690; 85025; 87077; 87086; 93005; 96361; 96374; 99283; 99285; J2405; Q9967

== ENCOUNTER → 2018-12-29 10:24 | Outpatient (CLI) | payer OTHER, SELFPAY | PROVIDERS: PCP Family Medicine; Visit Provider Family Medicine | DX: R10.9 Unspecified abdominal pain (principal) | CPT/HCPCS: 87045; 87899 ==

== ENCOUNTER 2018-12-30 06:42 | Day surgery (SDC) | payer OTHER, SELFPAY ==
[2018-12-30] VITALS (7 sets, daily range): BP systolic 104–115; BP diastolic 65–77; PULSE 71–93; RESP 12–17; TEMP 36.6–37.5; O2SAT 97–100; BMI 23.6
--- NOTE | 2018-12-30 | PATH_ITS ---
[facility] Accession Number: [id number] . 01 Material submitted: . PART A: duodenum - DUODENUM BIOPSIES PART B: gastrointestinal site - ANTRUM BIOPSIES PART C: esophagus, E-G Junction - GE JUNCTION BIOPSIES . 01 Clinical history: . EGD . 02 Diagnosis: A. Duodenum, Biopsies: Duodenal mucosa with no diagnostic abnormality. Negative for active inflammation, features of sprue, dysplasia, or malignancy. . B. Antrum, Biopsies: Gastric antral mucosa with mild chronic inflammation. Negative for Helicobacter organisms by immunohistochemistry. Negative for intestinal metaplasia. Negative for dysplasia or malignancy. . C. Gastroesophageal Junction, Biopsies: Squamous mucosa with mild chronic inflammation. Negative for fungal organisms on PAS stain. Proximal gastric-type mucosa not sampled. Negative for dysplasia or malignancy. [facility] 01/03/2019 1406 Local . 02 Electronically signed: . Damon Gaffney MD, PhD, Pathologist NPI- [id number] . 01 Gross description: . Part A: DUODENUM BIOPSIES: Received in formalin are 2 fragment(s) of ruby, soft tissue measuring 0.1 x 0.1 x 0.1 cm to 0.2 x 0.2 x 0.2 cm submitted entirely in 1 cassette(s) Part B: ANTRUM BIOPSIES: Received in formalin are 2 fragment(s) of ruby, soft tissue measuring 0.1 x 0.1 x 0.1 cm to 0.2 x 0.2 x 0.2 cm submitted entirely in 1 cassette(s) Part C: GE JUNCTION BIOPSIES: Received in formalin are 3 fragment(s) of ruby, soft tissue measuring 0.1 x 0.1 x 0.1 cm to 0.2 x 0.2 x 0.2 cm submitted entirely in 1 cassette(s) [place] [place] [place] [address] . 02 Microscopic: . Part B: An immunohistochemical stain is performed to evaluate for Helicobacter organisms, and is negative. A control stain shows appropriate reactivity. . Part C: An alcian blue stain is performed to evaluate for specialized intestinal metaplasia, and is negative for goblet cells. A control stain shows appropriate reactivity. . * This test was developed and its performance characteristics determined by [facility]. It has not been cleared or approved by the U.S. Food and Drug Administration. The FDA has determined that such clearance or approval is not necessary. This test is used for clinical purposes. It should not be regarded as investigational or for research. . 02 Pathologist provided ICD-10: K29.70, K21.9 . 02 CPT . 951758, 477075, 163433, X11801, 929783 Performed at: 01 [facility] [address] [id number] MD Alfonso Winslow MD Phone: [phone] Performed at: 02 [facility] [address] [place] [id number] MD Paz Singh MD Phone: [phone]
[2018-12-30] MEDS: SODIUM CHLORIDE 0.9% 1,000 ML 200 ML IV (07:34)
--- NOTE | 2018-12-30 07:50 | PM.PREOP ---
Pre-operative Note Interval Note History & Physical reviewed/Exam performed by Physician: Yes Changes to H&P: Yes H&P completed within 30 days and has changed as indicated here:: patient was seen in ER for lower abdominal pain; ct scan showed proximal ileum thickening ASA Class (for procedural sedation): II
[2018-12-30] MEDS: fentaNYL 250 MCG/5 ML INJ IV (07:51)
[2018-12-30] MEDS: MIDAZOLAM 5 MG/5 ML VIAL IV (07:52)
[2018-12-30] MEDS: LIDOCAINE 4% SOLN 50 ML 20 ML TOP (07:53)
--- NOTE | 2018-12-30 08:16 | PM.OP.ENDO ---
Operative Date/Time/Diagnoses Date of procedure: 12/30/18 Time of procedure: 08:16 Pre-op diagnosis: Regurgitation, abdominal pain, acid reflux Post-op diagnosis: other (Mild gastritis, small hiatal hernia, esophageal spasm) Procedure & Clinicians Study performed: EGD with cold forceps biopsies of duodenum, stomach antrum and esophagus GE junction Same procedure as scheduled: Yes Indications: Regurgitation, reflux symptoms Surgeon: Gilma Kan Procedure Notes SCOAP/Timeout: Performed Procedure in detail: The patient was brought to the room and placed in left lateral decubitus position with all bony prominences padded. A time-out was performed and then the patient was given procedural sedation starting with 4 mg of Versed and 100 mcg of fentanyl. An additional 1 mg of Versed was given during the procedure. Vitals were monitored throughout the procedure and remained stable. A bite block was placed in the patient's mouth to protect the teeth and lips. Once adequately sedated the procedure was begun. Gastroscope was passed over the tongue into the esophagus without difficulty. A tubular view of the esophagus was achieved and the scope was passed easily down the esophagus and into the stomach. In the stomach, the pylorus was viewed, appeared normal, and the gastroscope easily popped through and into the duodenum. We were then able to turn the scope and get into the 2nd portion of the duodenum. The entire viewed duodenum appeared normal. The ampulla was seen which appeared normal. Duodenal biopsies were taken with cold forceps in the 1st and 2nd portions of the duodenum. The scope was then retracted into the stomach, and there was mild diffuse gastritis seen throughout the body and antrum. No ulcers were seen, and no bleeding was seen. Biopsies were taken of the gastric antrum. The scope was then retroflexed and the hiatus was examined. The mucosal fold around the endoscope was slightly patulous intermittently gaping around the scope, consistent with a Hill grade 2 hiatal hernia. The scope was then retracted into the distal esophagus. The Z-line was seen at 38 cm. The crural pinch was seen at the same level. The Z-line was slightly irregular with salmon-colored mucosa extending 5 mm into the distal esophagus. Biopsies were taken at the GE junction. The scope was then retracted slowly out through the esophagus examining the esophageal mucosa. The esophageal mucosa was showing any and intact, without evidence of esophagitis, ulcer, or mucosal abnormality. Very powerful contractions of the esophagus were seen completely occluding the lumen during contraction, and relaxing to normal luminal patency between contractions. There was no stricture, ring, web, or other structural abnormality to explain the patient's regurgitation symptoms. The scope was then retracted out of the mouth, and the bite block was removed. The patient tolerated the procedure well was transferred to the PACU in stable condition. Findings: gastritis (Mild) and hiatal hernia (Small) Specimen(s): other (Duodenal biopsy, gastric antrum, and GE junction biopsies) Complications: none Impression: Abnormal esophageal contractions, mild gastritis, small hiatal hernia Post-procedure Plan for aftercare: Follow-up with Dr. Kan in the next 10 days to 2 weeks to discuss biopsy results and next steps. Continue PPI and other medications. Follow up: weeks (T2) Disposition: PACU
--- NOTE | 2018-12-30 08:39 | SUR.PHASEI ---
tolerating ice chips well, drowsy, denies discomfort. VSS
== END 2018-12-30 09:15 | disposition home or self-care (01) ==
PROVIDERS: PCP Family Medicine; Visit Provider Surgery
PROC: 0DJ08ZZ Inspection of Upper Intestinal Tract, Via Natural or Artificial Opening Endoscopic (ICD-10-PCS; CPT 43235; principal; 2018-12-30 07:45)
DX: K29.70 Gastritis, unspecified, without bleeding (principal); K21.9 Gastro-esophageal reflux disease without esophagitis; K44.9 Diaphragmatic hernia without obstruction or gangrene; K22.4 Dyskinesia of esophagus
CPT/HCPCS: 43239; J2250; J3010

== ENCOUNTER → 2019-01-12 09:47 | Outpatient (CLI) | payer OTHER, SELFPAY ==
--- NOTE | 2019-01-12 09:48 | DI.RAD.S_ITS ---
PROCEDURE: FL BARIUM SWALLOW INDICATIONS: eval for esophageal spasms COMPARISON: [facility], CT, CT ABDOMEN PELVIS W CON, 12/28/2018, 12:29. FINDINGS: Function: There is normal esophageal peristalsis. There is moderate gastroesophageal reflux elicited during exam. There is normal transit of a calibrated barium tablet through the esophagus into the stomach. Morphology: Air-contrast images demonstrate normal mucosal morphology. Single contrast views show no esophageal strictures, extrinsic mass effects, or diverticula. Limited images of the stomach demonstrate normal appearance. IMPRESSION: Moderate gastroesophageal reflux. Dictated by: Karrie Campos M.D. on 01/12/2019 at 11:20 Approved by: Karrie Campos M.D. on 01/12/2019 at 11:20
== END ==
PROVIDERS: PCP Family Medicine; Visit Provider Surgery
DX: K22.4 Dyskinesia of esophagus (principal); K21.9 Gastro-esophageal reflux disease without esophagitis
CPT/HCPCS: 74220

== ENCOUNTER 2019-02-14 16:38 | Emergency (ER) | payer OTHER, SELFPAY ==
[2019-02-14 16:42] VITALS: BP 127/88; PULSE 71; RESP 16; O2SAT 99
--- NOTE | 2019-02-14 17:14 | DI.RAD.S_ITS ---
PROCEDURE: XR CHEST 2V INDICATIONS: shortness of breath, chest pain TECHNIQUE: 2 views of the chest were acquired. COMPARISON: [facility], CR, XR CHEST 2V, 07/30/2017, 11:04 FINDINGS: Surgical changes and devices: None Lungs and pleura: Lungs are clear. No pleural effusions or pneumothorax. Mediastinum: Mediastinal contours are normal. Heart size is normal. Bones and chest wall: No suspicious bony abnormalities. Remote degenerative change is seen of the right acromioclavicular joint. Soft tissues appear unremarkable. IMPRESSION: Clear lungs. Dictated by: Fede Flanagan M.D. on 02/14/2019 at 16:51 Approved by: Fede Flanagan M.D. on 02/14/2019 at 16:52
[2019-02-14] MEDS: MAG HYDROX/ALUMINUM/SIMETH SUS 20 ML, LIDOCAINE VISCOUS 2% 15 ML PO (17:21)
--- NOTE | 2019-02-14 17:40 | ED_ITS ---
HPI - Chest Pain <JUDY Kerns - Last Filed: 02/14/19 19:25> General Chief Complaint: Chest Pain Stated Complaint: CHEST PAIN Time Seen by Provider: 02/14/19 16:43 Source: patient Mode of arrival: Ambulatory Limitations: no limitations History of Present Illness HPI narrative: The patient is a 29-year-old female nonsmoker history of palpitations, anxiety, and GERD, chest pain who presents with a chief complaint of chest pain. She states she has had on and off since September. She has had a workup including emergency department visit, as well as an endoscope. She states that she has stopped taking her omeprazole. She states that her chest pain is worse over the past few days. She denies any palpitations, lightheadedness, dizziness, nausea or vomiting. She has not taken anything to feel better at home. She is concerned that might be her GERD or anxiety. However she is very worried about her heart wants to have her heart checked. Related Data Home Medications Medication Instructions Recorded Confirmed wkgmavcoiium-Ek-tcah-minerals 1 tab PO DAILY 12/15/18 01/10/19 Previous Rx's Medication Instructions Recorded norgestrel-ethinyl estradiol 0.3 1 tab PO DAILY #168 tab 01/12/19 mg-30 mcg tablet Allergies Allergy/AdvReac Type Severity Reaction Status Date / Time ranitidine [From Zantac] Allergy Mild throat Verified 01/10/19 10:14 swelling Review of Systems <JUDY Kerns - Last Filed: 02/14/19 19:25> Review of Systems Narrative: GENERAL: Denies chills, fatigue, malaise, fever, sweats. HEENT: Denies sinus pain, ear pain, sore throat, difficulty swallowing, dizziness. RESPIRATORY: Denies dyspnea, cough, wheezing, hemoptysis, sputum. CARDIOVASCULAR: See HPI GASTROINTESTINAL: See HPI : Denies dysuria, frequency, incontinence, hematuria, urinary retention. MUSCULOSKELETAL: denies weakness, joint pain, or bony pain SKIN: Denies rash, skin lesions, or other NEUROLOGIC: Denies weakness, headache, numbness, change in speech, confusion, seizures, incoordination. PSYCHIATRIC: No concerning psychosocial issues. 12 point review of systems is negative except for those stated above Patient History <JUDY Kerns - Last Filed: 02/14/19 19:25> Medical History Depression (Acute 08/2018) Healthy adult (Acute) Family History Grandmother Breast cancer Hypertension Mother Age: 64 Hypertension Pacemaker Sister Age: 31 Asthma Sister Age: 30 Asthma Grandfather Pacemaker Grandfather Cancer Grandmother Breast cancer Social History household members: spouse Smoking Status: Never smoker alcohol intake: never Smoking Status: Never smoker Substance Use Type: does not use Exam <BELLE Kerns - Last Filed: 02/14/19 19:25> Narrative Exam Narrative: GENERAL: This is a well-nourished, well-developed patient, in no acute distress HEAD: Atraumatic. Normocephalic. No temporal or scalp tenderness. EYES: Pupils equal round and reactive. Extraocular motions intact. No scleral icterus. No injection or drainage. ENT: Nose without bleeding, purulent drainage or septal hematoma. Throat without erythema, tonsillar hypertrophy or exudate. Uvula midline. Airway patent. NECK: Trachea midline. No JVD or lymphadenopathy. Supple, nontender, no meningeal signs. CARDIOVASCULAR: Regular rate and rhythm RESPIRATORY: Clear to auscultation. Breath sounds equal bilaterally. No wheezes, rales, or rhonchi. No cough. No increased respiratory effort. No accessory muscle use. GASTROINTESTINAL: Abdomen soft, non-tender, nondistended. No hepato- splenomegaly, or palpable masses. No guarding. Active bowel sounds all 4 quadrants. EXTREMITIES: No clubbing, cyanosis, or edema. No joint tenderness, effusion, or edema noted. BACK: Nontender without deformity or crepitance. No flank tenderness. NEURO: AOx3. SKIN: No rash or erythema on visible skin Initial Vital Signs Initial Vital Signs: Vital Signs Pulse Rate 71 02/14/19 16:42 Respiratory Rate 16 02/14/19 16:42 Blood Pressure 127/88 02/14/19 16:42 Pulse Oximetry 99 02/14/19 16:42 <Corry Ward MD - Last Filed: 02/14/19 19:54> Initial Vital Signs Initial Vital Signs: Vital Signs Pulse Rate 71 02/14/19 16:42 Respiratory Rate 16 02/14/19 16:42 Blood Pressure 127/88 02/14/19 16:42 Pulse Oximetry 99 02/14/19 16:42 Course <BELLE Kerns - Last Filed: 02/14/19 19:25> Orders Ordered: ED Orders 02/14/19 16:47 EKG-12 Lead Stat 02/14/19 17:14 XR chest 2V Stat 02/14/19 17:30 Urine Culture Stat Urine Microscopic Stat 02/14/19 17:40 Amylase Stat Complete Blood Count AUTO DIFF Stat Comprehensive Metabolic Panel Stat Lipase Stat Troponin & CK Cardiac Panel Stat Discontinued Medications Al Hydrox/Mg Hydrox/Simethicone 20 ml/ Lidocaine HCl 15 ml 0 ml PO NOW ONE Stop: 02/14/19 17:16 Last Admin: 02/14/19 17:21 Dose: 35 ml Documented by: MICHELE Vital Signs Vital signs: Vital Signs - 8 hr 02/14/19 16:42 02/14/19 19:17 Pulse Rate 71 64 Respiratory Rate 16 18 Blood Pressure 127/88 119/74 Pulse Oximetry 99 99 <Corry Ward MD - Last Filed: 02/14/19 19:54> Orders Ordered: ED Orders 02/14/19 16:47 EKG-12 Lead Stat 02/14/19 17:14 XR chest 2V Stat 02/14/19 17:30 Urine Culture Stat Urine Microscopic Stat 02/14/19 17:40 Amylase Stat Complete Blood Count AUTO DIFF Stat Comprehensive Metabolic Panel Stat Lipase Stat Troponin & CK Cardiac Panel Stat Discontinued Medications Al Hydrox/Mg Hydrox/Simethicone 20 ml/ Lidocaine HCl 15 ml 0 ml PO NOW ONE Stop: 02/14/19 17:16 Last Admin: 02/14/19 17:21 Dose: 35 ml Documented by: MICHELE Vital Signs Vital signs: Vital Signs - 8 hr 02/14/19 16:42 02/14/19 19:17 Pulse Rate 71 64 Respiratory Rate 16 18 Blood Pressure 127/88 119/74 Pulse Oximetry 99 99 MDM - Chest Pain <BELLE Kerns - Last Filed: 02/14/19 19:25> Lab Data Result diagrams: 02/14/19 17:40 02/14/19 17:40 Labs: Lab Results 02/14/19 02/14/19 02/14/19 Range/Units 17:30 17:40 17:40 WBC 7.0 (4.5-11.0) X10^3/uL RBC 4.77 (4.0-5.2) X10^6/uL Hgb 13.7 (12.0-16.0) g/dL Hct 40.1 (36-46) % MCV 83.9 (80-100) fL MCH 28.7 (26-34) PG MCHC 34.2 (30-36) % RDW 12.6 (11.6-14.8) % Plt Count 365 (150-400) X10^3/uL Neut % (Auto) 65.2 (50-75) % Lymph % (Auto) 25.1 (25-40) % [place] % (Auto) 6.0 (3-14) % Eos % (Auto) 3.1 (2-4) % Baso % (Auto) 0.6 (0-2) % Neut # (Auto) 4600 (6441-7473) /uL Lymph # (Auto) 1800 (1653-8032) /uL [place] # (Auto) 400 (0-900) /uL Eos # (Auto) 200 (0-450) /uL Baso # (Auto) 0 (0-100) /uL Sodium 140 (137-145) mmol/L Potassium 3.8 (3.4-5.1) mmol/L Chloride 104 (98-107) mmol/L Carbon Dioxide 28 (22-32) mmol/L BUN 10 (7-17) mg/dL Creatinine 0.60 (0.52-1.04) mg/dL Estimated GFR > 60.0 (>60) mL/min BUN/Creatinine Ratio 16.7 (6-22) Glucose 92 (70-100) mg/dL Calcium 9.6 (8.4-10.2) mg/dL Total Bilirubin 0.4 (0.2-1.3) mg/dL AST 23 (14-36) IU/L ALT 19 (<35) IU/L Alkaline Phosphatase 87 (38-126) U/L Total Creatine Kinase 57 (30-135) U/L CK-MB (CK-2) TNP CK-MB (CK-2) Rel Index TNP Troponin I < 0.012 (0.01-0.034) ng/mL Total Protein 7.3 (6.3-8.2) g/dL Albumin 4.6 (3.5-5.0) g/dL Globulin 2.7 (1.7-4.1) g/dL Albumin/Globulin Ratio 1.7 (1.0-2.8) Amylase 60 (30-110) U/L Lipase 74 (23-300) U/L Urine RBC 0-1/hpf (0-5/HPF) Urine WBC 1-5/hpf (0-5/HPF) Ur Squamous Epith Cells 0-1 /hpf (0-5/HPF) Amorphous Sediment 1+ Urine Bacteria Few (2-10) H (None) Ur Culture Indicated? Specimen cultured Micro UA Comment Cass esterase + Point of Care Testing Test Results Negative Urine Dip Bedside Urine Glucose Negative Bedside Urine Bilirubin - Negative Bedside Urine Ketone - Negative Urine Specific [place] 1.005 Bedside Urine Occult Blood +++ Bedside Urine pH 6.5 Bedside Urine Protein - Negative Bedside Urine Urobilinogen - Negative Bedside Urine Nitrite - Negative Bedside Urine Leukocytes + 70 Esterase Imaging Data Chest x-ray: Radiologist's Impression: [address] [address] XRay Report Signed Patient: Annika Stevenson [facility]#: [id number] : 1990Acct:[id number] Age/Sex: 29 / FDate of Service: 02/14/19 Loc: ED Accession Number: [id number] Procedure: XR chest 2V Ordering Provider: Loretta Mejia PROCEDURE: XR CHEST 2V INDICATIONS: shortness of breath, chest pain TECHNIQUE: 2 views of the chest were acquired. COMPARISON: [facility], , XR CHEST 2V, 07/30/2017, 11:04 FINDINGS: Surgical changes and devices: None Lungs and pleura: Lungs are clear. No pleural effusions or pneumothorax. Mediastinum: Mediastinal contours are normal. Heart size is normal. Bones and chest wall: No suspicious bony abnormalities. Remote degenerative ch jeff is seen of the right acromioclavicular joint. Soft tissues appear unremarkable. IMPRESSION: Clear lungs. Dictated by: Forrest MccormackD. on 02/14/2019 at 16:51 Approved by: Fede Flanagan M.D. on 02/14/2019 at 16:52 ECG Data Attestation: I personally reviewed and interpreted this ECG as follows: Interpretation: Sinus rhythm. Ventricular rate 67. P.r. interval 137. QRS 81. Viewed by Dr. Ward MDM Narrative Medical decision making narrative: The patient is a 29-year-old female who presents with a chief complaint of chest pain onset since September. She felt better after a single GI cocktail. Chest x-ray is no acute findings. Troponin is negative. Low suspicion of ACS given patient's age, pain since September etcetera. Amylase and lipase are normal. Patient has overall benign exam. She does have leukocyte esterase in her urine, but denies any dysuria urgency or frequency so we will hold off on treatment at this point time. Urine cultures pending. Discussed at length the importance of following up with primary care provider. Suggested Maalox or Tums as needed for acid reflux. Patient has no questions or concerns upon discharge and states understanding of return precautions as well as follow-up care. <Corry Ward MD - Last Filed: 02/14/19 19:54> Lab Data Labs: Lab Results 02/14/19 02/14/19 02/14/19 Range/Units 17:30 17:40 17:40 WBC 7.0 (4.5-11.0) X10^3/uL RBC 4.77 (4.0-5.2) X10^6/uL Hgb 13.7 (12.0-16.0) g/dL Hct 40.1 (36-46) % MCV 83.9 (80-100) fL MCH 28.7 (26-34) PG MCHC 34.2 (30-36) % RDW 12.6 (11.6-14.8) % Plt Count 365 (150-400) X10^3/uL Neut % (Auto) 65.2 (50-75) % Lymph % (Auto) 25.1 (25-40) % [place] % (Auto) 6.0 (3-14) % Eos % (Auto) 3.1 (2-4) % Baso % (Auto) 0.6 (0-2) % Neut # (Auto) 4600 (9394-8193) /uL Lymph # (Auto) 1800 (9505-8208) /uL [place] # (Auto) 400 (0-900) /uL Eos # (Auto) 200 (0-450) /uL Baso # (Auto) 0 (0-100) /uL Sodium 140 (137-145) mmol/L Potassium 3.8 (3.4-5.1) mmol/L Chloride 104 (98-107) mmol/L Carbon Dioxide 28 (22-32) mmol/L BUN 10 (7-17) mg/dL Creatinine 0.60 (0.52-1.04) mg/dL Estimated GFR > 60.0 (>60) mL/min BUN/Creatinine Ratio 16.7 (6-22) Glucose 92 (70-100) mg/dL Calcium 9.6 (8.4-10.2) mg/dL Total Bilirubin 0.4 (0.2-1.3) mg/dL AST 23 (14-36) IU/L ALT 19 (<35) IU/L Alkaline Phosphatase 87 (38-126) U/L Total Creatine Kinase 57 (30-135) U/L CK-MB (CK-2) TNP CK-MB (CK-2) Rel Index TNP Troponin I < 0.012 (0.01-0.034) ng/mL Total Protein 7.3 (6.3-8.2) g/dL Albumin 4.6 (3.5-5.0) g/dL Globulin 2.7 (1.7-4.1) g/dL Albumin/Globulin Ratio 1.7 (1.0-2.8) Amylase 60 (30-110) U/L Lipase 74 (23-300) U/L Urine RBC 0-1/hpf (0-5/HPF) Urine WBC 1-5/hpf (0-5/HPF) Ur Squamous Epith Cells 0-1 /hpf (0-5/HPF) Amorphous Sediment 1+ Urine Bacteria Few (2-10) H (None) Ur Culture Indicated? Specimen cultured Micro UA Comment Cass esterase + Point of Care Testing Test Results Negative Urine Dip Bedside Urine Glucose Negative Bedside Urine Bilirubin - Negative Bedside Urine Ketone - Negative Urine Specific [place] 1.005 Bedside Urine Occult Blood +++ Bedside Urine pH 6.5 Bedside Urine Protein - Negative Bedside Urine Urobilinogen - Negative Bedside Urine Nitrite - Negative Bedside Urine Leukocytes + 70 Esterase Discharge Plan Departure Patient Disposition: Home Clinical Impression: Atypical chest pain Discharge Date/Time: 02/14/19 19:17 Instructions: Gastroesophageal Reflux Disease (Alternative Therapy), DI for Gastroesophageal Reflux Disease (GERD), DI for Atypical Chest Pain, GERD Diet Activity Restrictions/Additional Instructions: Your workup today shows no acute findings. Your EKG, lab work, chest x-ray are all normal. You responded very well to medication for acid reflux today. I suggest using Tums or Maalox as needed. Please monitor your intake to avoid acid, citrus, coffee, exacerbating factors for acid reflux. Please follow-up with primary care provider in the next few days. Please come back to the emergency department for any acute concerns. Prescriptions: No Action Yanna (28) 0.3-30 mg-mcg tablet 1 tab PO DAILY Qty: 168 RF: 0 Multiple Vitamin, Womens Tablet 1 tab PO DAILY RF: 0 Referrals: Yana Guerrero DO [Primary Care Provider] -
[2019-02-14 18:03] LABS: Add Manual Diff / Slide Review NO; Basophils Absolute Auto 0 /uL (0-100); Basophils Percent Auto 0.6 % (0-2); Eosinophils Absolute Auto 200 /uL (0-450); Eosinophils Percent Auto 3.1 % (2-4); Hematocrit 40.1 % (36-46); Hemoglobin 13.7 g/dL (12.0-16.0); Lymphocytes Absolute Auto 1800 /uL (1100-4500); Lymphocytes Percent Auto 25.1 % (25-40); Mean Corpuscular HGB Conc 34.2 % (30-36); Mean Corpuscular Hemoglobin 28.7 PG (26-34); Mean Corpuscular Volume 83.9 fL (80-100); Monocytes Absolute Auto 400 /uL (0-900); Neutrophils Absolute Auto 4600 /uL (1500-7000); Neutrophils Percent Auto 65.2 % (50-75); Platelet Count 365 X10^3/uL (150-400); Red Blood Cell Count 4.77 X10^6/uL (4.0-5.2); Red Cell Distribution Width 12.6 % (11.6-14.8)
[2019-02-14 18:05] LABS: Alanine Aminotransferase 19 IU/L (<35); Albumin 4.6 g/dL (3.5-5.0); Albumin Globulin Ratio 1.7 (1.0-2.8); Alkaline Phosphatase 87 U/L (38-126); Amylase 60 U/L (30-110); Aspartate Aminotransferase 23 IU/L (14-36); BUN Creatinine Ratio 16.7 (6-22); Bilirubin Total 0.4 mg/dL (0.2-1.3); Blood Urea Nitrogen 10 mg/dL (7-17); Calcium 9.6 mg/dL (8.4-10.2); Carbon Dioxide 28 mmol/L (22-32); Chloride 104 mmol/L (98-107); Creatine Kinase 57 U/L (30-135); Estimated Glomerular Filt Rate > 60.0 mL/min (>60); Globulin 2.7 g/dL (1.7-4.1); Glucose 92 mg/dL (70-100); HEMOLYSIS < 15 (0-50); Lipase 74 U/L (23-300); Potassium 3.8 mmol/L (3.4-5.1); Sodium 140 mmol/L (137-145); Total Protein 7.3 g/dL (6.3-8.2)
[2019-02-14 18:06] LABS: Amorphous Sediment Urine 1+; Bacteria Urine Few (2-10); Culture Indicated Urine Specimen Cultured; RBC Urine 0-1/HPF (0-5/HPF); Squamous Epithelial Cell Urine 0-1 /HPF (0-5/HPF); Urine Comments LEU ESTERASE +; WBC Urine 1-5/HPF (0-5/HPF)
[2019-02-14 18:17] LABS: Troponin I < 0.012 ng/mL (0.01-0.034)
[2019-02-14 19:17] VITALS: BP 119/74; PULSE 64; RESP 18; O2SAT 99
== END 2019-02-14 19:17 | disposition home or self-care (01) ==
PROVIDERS: Emergency Provider Nurse Practitioner Family; PCP Family Medicine
DX: R07.89 Other chest pain (principal)
CPT/HCPCS: 36415; 71046; 80053; 81003; 81015; 81025; 82150; 82550; 83690; 84484; 85025; 87086; 93005; 99284; 99285

== ENCOUNTER → 2019-07-27 08:10 | Outpatient (CLI) | payer OTHER, MEDICAID, SELFPAY ==
--- NOTE | 2019-07-27 08:11 | DI.US.S_ITS ---
LIMITED ULTRASOUND OF LEFT BREAST: 07/27/2019 CLINICAL: Occasional left breast pain. No prior exams were available for comparison. Real-time ultrasound of the left breast retroareolar was performed on the area of interest. IMPRESSION: NEGATIVE There is no sonographic evidence of malignancy. There is no abnormality seen in the left breast to correspond with the pain in the sub-areolar depth, however, clinical followup is recommended. This exam was interpreted at Station ID: [id number]. Electronically Signed By: Alfonso ku/taylor:07/27/2019 16:30:57 letter sent: Clinical Evaluation Ultrasound BI-RADS: 1 Negative
== END ==
PROVIDERS: PCP Family Medicine; Referring Provider Family Medicine; Visit Provider Family Medicine
DX: N64.4 Mastodynia (principal); Z80.3 Family history of malignant neoplasm of breast
CPT/HCPCS: 76642

== ENCOUNTER → 2019-12-25 08:39 | Outpatient (CLI) | payer OTHER, MEDICAID, SELFPAY ==
[2019-12-25 09:23] LABS: Add Manual Diff / Slide Review NO; Basophils Absolute Auto 0 /uL (0-100); Basophils Percent Auto 0.2 % (0-2); Eosinophils Absolute Auto 200 /uL (0-450); Eosinophils Percent Auto 2.3 % (2-4); Hemoglobin 12.7 g/dL (12.0-16.0); Lymphocytes Absolute Auto 1700 /uL (1100-4500); Lymphocytes Percent Auto 17.7 % (25-40); Mean Corpuscular HGB Conc 33.5 % (30-36); Mean Corpuscular Hemoglobin 28.7 PG (26-34); Mean Corpuscular Volume 85.8 fL (80-100); Monocytes Absolute Auto 600 /uL (0-900); Monocytes Percent Auto 6.1 % (3-14); Neutrophils Absolute Auto 6900 /uL (1500-7000); Neutrophils Percent Auto 73.7 % (50-75); Platelet Count 332 X10^3/uL (150-400); Red Blood Cell Count 4.43 X10^6/uL (4.0-5.2); Red Cell Distribution Width 12.9 % (11.6-14.8); White Blood Cell Count 9.3 X10^3/uL (4.5-11.0)
[2019-12-25 10:26] LABS: Appearance Urine UA CLEAR; Bilirubin Urine UA NEGATIVE (NEGATIVE); Color Urine UA YELLOW; Glucose Urine UA NEGATIVE (Negative); Ketones Urine UA NEGATIVE (NEGATIVE); Leukocyte Esterase Urine UA NEGATIVE (NEGATIVE); Nitrite Urine UA NEGATIVE (Negative); Occult Blood Urine UA NEGATIVE (Negative); Protein Urine UA NEGATIVE (Negative); Urobilinogen Urine UA 0.2 E.U./dL (0.2)
[2019-12-25 13:52] LABS: Urine N gonorrhoeae NOT DETECTED
[2019-12-25 13:53] LABS: Urine Chlamydia NOT DETECTED
[2019-12-25 15:34] LABS: Hepatitis B Surface Antigen NEGATIVE s/c (NEGATIVE); Rubella Antibody IgG 24.5 IU/mL (>15)
[2019-12-25 15:43] LABS: HIV 1 & 2 Ab/Ag 4th Gen Combo NEGATIVE (NEGATIVE); Hep C Virus Ab w/Reflex Quant NEGATIVE s/c (NEGATIVE)
[2019-12-26 04:36] LABS: RPR Screen Non Reactive (Non Reactive)
[2019-12-26 06:17] LABS: Varicella IgG Antibody 601 index (Immune >165)
== END ==
PROVIDERS: PCP Family Medicine; Referring Provider Specialist; Visit Provider Specialist
DX: Z34.81 Encounter for supervision of other normal pregnancy, first trimester (principal); Z3A.01 Less than 8 weeks gestation of pregnancy
CPT/HCPCS: 36415; 80055; 81003; 86787; 86803; 86850; 86900; 86901; 87086; 87389; 87491; 87591

== ENCOUNTER → 2020-03-08 10:46 | Outpatient (CLI) | payer OTHER, MEDICAID, SELFPAY ==
[2020-03-11 18:38] LABS: Estriol, Free 2.33 ng/mL (.); Inhibin A, Dimeric 96.43 pg/mL (.); Inhibin A, MoM 0.62 (.); Maternal Ethnicity Caucasian (.); Maternal Weight 168 lbs (.); Number of Fetuses No (.); OSBR Risk 1 IN 8106 (.); Results Report (.); Test Results *Screen Negative* (.); hCG, MoM 0.38 (.); hCG, Serum 9515 mIU/mL (.)
== END ==
PROVIDERS: PCP Family Medicine; Referring Provider Specialist; Visit Provider Specialist
DX: Z34.82 Encounter for supervision of other normal pregnancy, second trimester (principal); Z3A.17 17 weeks gestation of pregnancy
CPT/HCPCS: 36415; 82105; 82677; 84702; 86336

== ENCOUNTER → 2020-03-29 12:08 | Outpatient (CLI) | payer OTHER, MEDICAID, SELFPAY ==
--- NOTE | 2020-03-29 12:10 | DI.US.S_ITS ---
PROCEDURE: US OB >= 14 WEEKS FETUS INDICATIONS: 20 week anatomy OUTSIDE/PRIOR DATING DATA: Last menstrual period (LMP): 10/31/2019. LMP-based estimated date of delivery (GIGI): 08/06/2020 . First dating scan (date and location): 12/25/2019 . Estimated date of delivery (GGII) from first dating scan: 08/04/2020 . TECHNIQUE: Real-time scanning was performed of the fetus, with image documentation and biometric measurements. Endovaginal scanning: No COMPARISON: [facility], , OB >= 14 WEEKS FETUS, 03/04/2020, 9:00. FINDINGS: General: A single living intrauterine gestation is present. Presentation: Vertex. Placenta: Placental position is anterior , without previa. Amniotic fluid index: 12.5 cm, normal range is 5-24 cm. heart rate: 150 beats per minute. Maternal cervical canal: 4.0 cm long. Normal lower limit is 2.5 cm. biometrics: Biparietal diameter: 21 weeks 5 days Head circumference: 22 weeks 1 day Abdominal circumference: 21 weeks 3 days Femur length: 23 weeks 6 days Estimated gestational age from initial scan: 21 weeks 5 Composite gestational age from present scan: 22 weeks 2 days Estimated weight and percentile: 505 g; 81st percentile Measurement variability for biometric dating: +/- 7 days from 14 weeks to 15 weeks 6 days gestation, +/- 10 days from 16 weeks to 21 weeks 6 days gestation, +/- 2 weeks from 22 weeks to 27 weeks 6 days gestation, +/- 3 weeks for 28 weeks gestation or later. weight reference: 4500 g or EFW >90/95% is considered macrosomia or large for gestational age. EFW <10% is small for gestational age. EFW 5% or less is considered intra-uterine growth restriction. Anatomic survey: Neuro: Ventricles are non-dilated at less than 10 mm. Cisterna magna is normal at 3-11 mm. Cerebellum is normal in size and morphology. Nuchal skin fold: Normal at less than 6 mm between 14-21 weeks gestational age. Face: Nose and lips, facial profile are normal. Spine: No evidence for spina bifida. Heart: 4-chambered heart is present, with normal ventricular outflow tracts. Diaphragm: Diaphragm is intact. Stomach: Left-sided stomach is present. Kidneys: No hydronephrosis. Normal is less than 5 mm in 2nd trimester, less than 7 mm in 3rd trimester. Cord: 3-vessel cord has orthotopic insertion. Bladder: Normal in size. Extremities: All 4 extremities identified. IMPRESSION: 1. Single living IUP redemonstrated and interval growth is normal. 2. Normal anatomic survey. Dictated by: Terry OVERTON Interpreted: Ryan Lyons MD on 03/29/2020 at 15:18 Approved by: Ryan Lyons M.D. on 03/29/2020 at 16:05
== END ==
PROVIDERS: PCP Family Medicine; Referring Provider Specialist; Visit Provider Specialist
DX: Z34.82 Encounter for supervision of other normal pregnancy, second trimester (principal); Z3A.22 22 weeks gestation of pregnancy
CPT/HCPCS: 76811

== ENCOUNTER → 2020-04-18 08:53 | Outpatient (CLI) | payer OTHER, MEDICAID, SELFPAY ==
[2020-04-18 11:13] LABS: Hemoglobin 12.8 g/dL (12.0-16.0)
[2020-04-18 11:32] LABS: GTT (PREG) 1 Hour PP 50gm Dose 122 mg/dL (76-139)
== END ==
PROVIDERS: PCP Family Medicine; Referring Provider Specialist; Visit Provider Specialist
DX: Z34.82 Encounter for supervision of other normal pregnancy, second trimester (principal); Z3A.25 25 weeks gestation of pregnancy
CPT/HCPCS: 82950; 85014; 85018

== ENCOUNTER 2020-05-21 18:37 | Outpatient (CLI) | payer OTHER, MEDICAID, SELFPAY ==
[2020-05-21 20:09] LABS: RBC Urine None Seen (0-5/HPF)
[2020-05-21 20:16] LABS: Appearance Urine UA SL CLOUDY; Bilirubin Urine UA NEGATIVE (NEGATIVE); Color Urine UA YELLOW; Glucose Urine UA NEGATIVE (Negative); Ketones Urine UA NEGATIVE (NEGATIVE); Leukocyte Esterase Urine UA 3+ (NEGATIVE); Nitrite Urine UA NEGATIVE (Negative); Occult Blood Urine UA NEGATIVE (Negative); Protein Urine UA NEGATIVE (Negative); Specific Gravity Urine UA 1.015 (1.000-1.035); Urobilinogen Urine UA 0.2 E.U./dL (0.2)
[2020-05-21 20:20] LABS: pH Urine UA 7.5 (4.5-8.0)
[2020-05-21 20:34] LABS: Amorphous Sediment Urine 1+; Bacteria Urine Few (2-10); Culture Indicated Urine Specimen Cultured; Mucus Urine 1+ (Negative); Squamous Epithelial Cell Urine 5-10 /HPF (0-5/HPF); WBC Urine 5-10/HPF (0-5/HPF)
--- NOTE | 2020-05-22 08:58 | P.TNLD_ITS ---
Visit Information Visit Information Date of evaluation: 05/21/20 Primary OB Provider: Ashli Rodgers Reason for Evaluation: Yes pre-term labor COUNTS INCLUDE [facility] BEDS AT THE [facility] Medical History (Updated 05/22/20 @ 09:00 by Ashli Rodgers MD) Acute thoracic back pain (~10/2019) Anxiety with depression (~10/2018) Bacterial vaginosis (~02/2019) Body posture problem Cervical somatic dysfunction (~09/2019) Chronic low back pain without sciatica (~09/2019) Chronic neck pain (~09/2019) Colicky epigastric pain Cranial somatic dysfunction (~09/2019) Depression (08/2018) Gastritis Generalized anxiety disorder with panic attacks (~10/2018) GERD with esophagitis Healthy adult Heartburn during History of gastroesophageal reflux (GERD) (~05/2018) Injury, unspecified, sequela Lumbar region somatic dysfunction (~09/2019) Marital dysfunction Neck stiffness (~10/2019) Paresthesia of lower extremity (~10/2019) Pelvic somatic dysfunction (~09/2019) depression (~02/2016) Right ear pain Sacral region somatic dysfunction (~09/2019) Seasonal allergies (~2000) Segmental and somatic dysfunction of abdomen and other regions (~10/2019) Sinus headache Somatic dysfunction of left lower extremity (~04/2019) Swallowing difficulty Swallowing pain Tension type headache (~09/2019) Thoracic region somatic dysfunction (~09/2019) Vaginal delivery (~02/2016) Surgical History (Updated 12/21/19 @ 09:53 by Shelley Roman RN) [place] teeth extracted Family History (Updated 12/21/19 @ 10:01 by Shelley Roman RN) Mother Age: 65 Hypertension Pacemaker Sister Age: 32 Asthma Sister Age: 33 Asthma Grandfather Pacemaker Alzheimer's dementia Diverticulitis Grandfather Cancer Grandmother Breast cancer Father No problems noted. Grandmother Cancer Social History marital status: number of children: 1 household members: spouse lives independently: Yes caregiver/support person: No housing: house pets and animals: No education level: college ([employer] general education) occupational status: unemployed and previously employed current occupational exposures/hazards: No eliane/orthodoxy: Jain special eliane needs: No travel history: recent (Was in [place] x 1 month 2019.) seatbelt use: always Smoking Status: Never smoker second hand exposure: Yes (Grandma, but she smokes outside.) alcohol intake: former (Pre-, occasional. ) substance use type: does not use during the past year weight has: remained stable well-balanced diet: daily or most days daily servings fruits/ve-4 caffeine: No (Quit due to acid reflux. Occasional decaf.) Type(s) of exercise: walking and bicycling frequency: 3-4 times per week Objective Labs Labs: Laboratory Results - last 24 hr 05/21/20 19:00 Urine Color Yellow Urine Appearance Sl cloudy Urine pH 7.5 Ur Specific Joffre 1.015 Urine Protein Negative Urine Glucose (UA) Negative Urine Ketones Negative Urine Occult Blood Negative Urine Nitrate Negative Urine Bilirubin Negative Urine Urobilinogen 0.2 Ur Leukocyte Esterase 3+ H Urine RBC None seen Urine WBC 5-10/hpf H Ur Squamous Epith Cells 5-10 /hpf H Amorphous Sediment 1+ Urine Bacteria Few (2-10) H Urine Mucus 1+ H Ur Culture Indicated? Specimen cultured Evaluation Evaluation Baseline heart rate: 135 Variability: Moderate (11-25) monitor accelerations: Present monitor decelerations: Absent Category of Tracing: Reactive Status: Category l Laboratory results: Laboratory Tests 05/21/20 19:00 Urine Color Yellow Urine Appearance Sl cloudy Urine pH 7.5 Ur Specific Joffre 1.015 Urine Protein Negative Urine Glucose (UA) Negative Urine Ketones Negative Urine Occult Blood Negative Urine Nitrate Negative Urine Bilirubin Negative Urine Urobilinogen 0.2 Ur Leukocyte Esterase 3+ H Urine RBC None seen Urine WBC 5-10/hpf H Ur Squamous Epith Cells 5-10 /hpf H Amorphous Sediment 1+ Urine Bacteria Few (2-10) H Urine Mucus 1+ H Ur Culture Indicated? Specimen cultured Comments: Patient with some mild uterine irritability on monitor. Urine culture. Patient is to push fluids. Diagnosis, Plan/Disposition Final Diagnosis (1) 29 weeks gestation of : Status: Acute (2) Uterine irritability: Status: Acute Plan/Disposition Plan: Patient is to push fluids. Will treat for UTI is cultures positive. Precautions reviewed. OB Disposition: home
== END 2020-05-21 19:40 | disposition home or self-care (01) ==
LOC: OB 06-07 09:36
PROVIDERS: PCP Family Medicine; Referring Provider Specialist; Visit Provider Specialist
DX: O62.9 Abnormality of forces of labor, unspecified (principal); Z3A.29 29 weeks gestation of pregnancy
CPT/HCPCS: 59025; 81001; 87086; G0378; G0379

== ENCOUNTER → 2020-07-09 11:44 | Outpatient (CLI) | payer OTHER, MEDICAID, SELFPAY ==
[2020-07-10 17:06] LABS: Strep Grp B PCR NEG for Grp B Strep
== END ==
PROVIDERS: PCP Family Medicine; Visit Provider Specialist
DX: Z34.83 Encounter for supervision of other normal pregnancy, third trimester (principal); Z3A.36 36 weeks gestation of pregnancy
CPT/HCPCS: 87653

== ENCOUNTER 2020-07-12 19:56 | Observation (INO) | payer OTHER, MEDICAID, SELFPAY ==
--- NOTE | 2020-07-12 21:26 | P.TNLD_ITS ---
Visit Information Visit Information Date of evaluation: 07/12/20 Primary OB Provider: Ashli Rodgers On-call OB Provider: Lana Rocha Reason for Evaluation: Yes non-stress test non-stress test reason: h ypertension/pre-eclampsia Comments/Additional reasons for admission: [facility] and was advised to come to the center due to headache and puffiness in hands and feet. Pressures in clinic have all been normal without concerns for preeclampsia. Patient had not taken anything for her headache prior to arrival. Vital Signs Vital Signs: Temperature 36.7? blood pressure 114/75 heart rate 71 Multiple blood pressures were taken during her time in the center and all were normal in the 110s to 120s over 70s. [facility] Medical History (Updated 07/13/20 @ 09:13 by Lana Rocha DO) Acute low back pain Acute thoracic back pain (~10/2019) Anxiety with depression (~10/2018) Bacterial vaginosis (~02/2019) Body posture problem Cervical somatic dysfunction (~09/2019) Chronic low back pain without sciatica (~09/2019) Chronic neck pain (~09/2019) Colicky epigastric pain Cranial somatic dysfunction (~09/2019) Depression (08/2018) Gastritis Generalized anxiety disorder with panic attacks (~10/2018) GERD with esophagitis Healthy adult Heartburn during History of gastroesophageal reflux (GERD) (~05/2018) Injury, unspecified, sequela Lumbar region somatic dysfunction (~09/2019) Marital dysfunction Neck stiffness (~10/2019) Paresthesia of lower extremity (~10/2019) Pelvic somatic dysfunction (~09/2019) depression (~02/2016) Right ear pain Sacral region somatic dysfunction (~09/2019) Seasonal allergies (~2000) Segmental and somatic dysfunction of abdomen and other regions (~10/2019) Sinus headache Somatic dysfunction of left lower extremity (~04/2019) Swallowing difficulty Swallowing pain Tension type headache (~09/2019) Thoracic region somatic dysfunction (~09/2019) Vaginal delivery (~02/2016) Surgical History (Updated 12/21/19 @ 09:53 by Shelley Roman RN) [place] teeth extracted Family History (Updated 12/21/19 @ 10:01 by Shelley Roman RN) Mother Age: 65 Hypertension Pacemaker Sister Age: 32 Asthma Sister Age: 33 Asthma Grandfather Pacemaker Alzheimer's dementia Diverticulitis Grandfather Cancer Grandmother Breast cancer Father No problems noted. Grandmother Cancer Social History marital status: number of children: 1 household members: spouse lives independently: Yes caregiver/support person: No housing: house pets and animals: No education level: college ([employer] general education) occupational status: unemployed and previously employed current occupational exposures/hazards: No eliane/muslim: Buddhist special eliane needs: No travel history: recent (Was in [place] x 1 month 2019.) seatbelt use: always Smoking Status: Never smoker second hand exposure: Yes (Grandma, but she smokes outside.) alcohol intake: former (Pre-, occasional. ) substance use type: does not use during the past year weight has: remained stable well-balanced diet: daily or most days daily servings fruits/ve-4 caffeine: No (Quit due to acid reflux. Occasional decaf.) Type(s) of exercise: walking and bicycling frequency: 3-4 times per week Evaluation Evaluation Baseline heart rate: 120 Variability: Moderate (11-25) monitor accelerations: Present Monitor Decelerations: Absent Uterine Contraction Intensity: Mild Category of Tracing: Reactive Diagnosis, Plan/Disposition Final Diagnosis (1) Headache in : Status: Acute (2) 36 weeks gestation of : Status: Acute Plan/Disposition Plan: 30-year-old at 36 weeks and 3 days gestation with concerns for new edema in her hands and feet as well as headache. Blood pressures in the center were normal. Per nursing, edema was very slight if present at all. NST reactive. She was nuno every 2-4 minutes but denied feeling them. Patient was reassured and given a dose of Tylenol for her headache. She will follow-up in clinic as scheduled. OB Disposition: home
[2020-07-12] MEDS: ACETAMINOPHEN 325 MG TABLET 650 MG PO (21:53)
== END 2020-07-12 22:15 | disposition home or self-care (01) ==
LOC: LABOR 20:05
PROVIDERS: Admitting Provider Family Medicine; PCP Family Medicine; Referring Provider Family Medicine; Visit Provider Family Medicine
DX: O26.893 Other specified pregnancy related conditions, third trimester (principal); R51.9 Headache, unspecified; O12.03 Gestational edema, third trimester; Z3A.36 36 weeks gestation of pregnancy
CPT/HCPCS: 59025; G0378; G0379

== ENCOUNTER 2020-07-16 12:57 | Outpatient (CLI) | payer OTHER, MEDICAID, SELFPAY ==
--- NOTE | 2020-07-16 14:25 | P.TNLD_ITS ---
Visit Information Visit Information Date of evaluation: 07/16/20 Primary OB Provider: Ashli Rodgers On-call OB Provider: Wu Pa Reason for Evaluation: Yes non-stress test Comments/Additional reasons for admission: Decreased FM [facility] Medical History (Updated 07/13/20 @ 09:13 by Lana Rocha DO) Acute low back pain Acute thoracic back pain (~10/2019) Anxiety with depression (~10/2018) Bacterial vaginosis (~02/2019) Body posture problem Cervical somatic dysfunction (~09/2019) Chronic low back pain without sciatica (~09/2019) Chronic neck pain (~09/2019) Colicky epigastric pain Cranial somatic dysfunction (~09/2019) Depression (08/2018) Gastritis Generalized anxiety disorder with panic attacks (~10/2018) GERD with esophagitis Healthy adult Heartburn during History of gastroesophageal reflux (GERD) (~05/2018) Injury, unspecified, sequela Lumbar region somatic dysfunction (~09/2019) Marital dysfunction Neck stiffness (~10/2019) Paresthesia of lower extremity (~10/2019) Pelvic somatic dysfunction (~09/2019) depression (~02/2016) Right ear pain Sacral region somatic dysfunction (~09/2019) Seasonal allergies (~2000) Segmental and somatic dysfunction of abdomen and other regions (~10/2019) Sinus headache Somatic dysfunction of left lower extremity (~04/2019) Swallowing difficulty Swallowing pain Tension type headache (~09/2019) Thoracic region somatic dysfunction (~09/2019) Vaginal delivery (~02/2016) Surgical History (Updated 12/21/19 @ 09:53 by Shelley Roman RN) [place] teeth extracted Family History (Updated 12/21/19 @ 10:01 by Shelley Roman RN) Mother Age: 65 Hypertension Pacemaker Sister Age: 32 Asthma Sister Age: 33 Asthma Grandfather Pacemaker Alzheimer's dementia Diverticulitis Grandfather Cancer Grandmother Breast cancer Father No problems noted. Grandmother Cancer Social History marital status: number of children: 1 household members: spouse lives independently: Yes caregiver/support person: No housing: house pets and animals: No education level: college ([employer] general education) occupational status: unemployed and previously employed current occupational exposures/hazards: No eliane/mandaeism: Hindu special eliane needs: No travel history: recent (Was in [place] x 1 month 2019.) seatbelt use: always Smoking Status: Never smoker second hand exposure: Yes (Grandma, but she smokes outside.) alcohol intake: former (Pre-, occasional. ) substance use type: does not use during the past year weight has: remained stable well-balanced diet: daily or most days daily servings fruits/ve-4 caffeine: No (Quit due to acid reflux. Occasional decaf.) Type(s) of exercise: walking and bicycling frequency: 3-4 times per week Evaluation Evaluation Baseline heart rate: 135 Variability: Moderate (11-25) monitor accelerations: Present Monitor Decelerations: Absent Uterine Contraction Intensity: Mild Category of Tracing: Reactive Status: Category l Cervical dilation (cm): 0 Cervical effacement (%): 50 station: -2 Comments: Reactive NST with active fetus noted on continuous EFHRM.
== END 2020-07-16 13:39 | disposition home or self-care (01) ==
LOC: OB 07-17 08:43
PROVIDERS: PCP Family Medicine; Referring Provider Obstetrics & Gynecology; Visit Provider Obstetrics & Gynecology
DX: O36.8130 Decreased fetal movements, third trimester, not applicable or unspecified (principal); Z3A.37 37 weeks gestation of pregnancy
CPT/HCPCS: 59025; G0378; G0379

== ENCOUNTER 2020-07-27 19:59 | Outpatient (CLI) | payer OTHER, MEDICAID, SELFPAY ==
--- NOTE | 2020-07-28 13:26 | PM.OBTRLD ---
Visit Information Visit Information Date of evaluation: 07/27/20 Primary OB Provider: Ashli Rodgers On-call OB Provider: Bianca Lauren Reason for Evaluation: Yes rule out labor Comments/Additional reasons for admission: Patient is a 30yo P1 @39 weeks gestation with a history of , presenting out of concern for labor with q15 contractions. +FM, no VB or LOF, no additional symptoms. Vital Signs Vital Signs: 128/78, HR 81 PFSH Medical History (Updated 07/13/20 @ 09:13 by Lana Rocha DO) Acute low back pain Acute thoracic back pain (~10/2019) Anxiety with depression (~10/2018) Bacterial vaginosis (~02/2019) Body posture problem Cervical somatic dysfunction (~09/2019) Chronic low back pain without sciatica (~09/2019) Chronic neck pain (~09/2019) Colicky epigastric pain Cranial somatic dysfunction (~09/2019) Depression (08/2018) Gastritis Generalized anxiety disorder with panic attacks (~10/2018) GERD with esophagitis Healthy adult Heartburn during History of gastroesophageal reflux (GERD) (~05/2018) Injury, unspecified, sequela Lumbar region somatic dysfunction (~09/2019) Marital dysfunction Neck stiffness (~10/2019) Paresthesia of lower extremity (~10/2019) Pelvic somatic dysfunction (~09/2019) depression (~02/2016) Right ear pain Sacral region somatic dysfunction (~09/2019) Seasonal allergies (~2000) Segmental and somatic dysfunction of abdomen and other regions (~10/2019) Sinus headache Somatic dysfunction of left lower extremity (~04/2019) Swallowing difficulty Swallowing pain Tension type headache (~09/2019) Thoracic region somatic dysfunction (~09/2019) Vaginal delivery (~02/2016) Surgical History (Updated 12/21/19 @ 09:53 by Shelley Roman RN) [place] teeth extracted Family History (Updated 12/21/19 @ 10:01 by Shelley Roman RN) Mother Age: 65 Hypertension Pacemaker Sister Age: 32 Asthma Sister Age: 33 Asthma Grandfather Pacemaker Alzheimer's dementia Diverticulitis Grandfather Cancer Grandmother Breast cancer Father No problems noted. Grandmother Cancer Social History marital status: number of children: 1 household members: spouse lives independently: Yes caregiver/support person: No housing: house pets and animals: No education level: college ([employer] general education) occupational status: unemployed and previously employed current occupational exposures/hazards: No eliane/faith: Congregational special eliane needs: No travel history: recent (Was in [place] x 1 month 2019.) seatbelt use: always Smoking Status: Never smoker second hand exposure: Yes (Grandma, but she smokes outside.) alcohol intake: former (Pre-, occasional. ) substance use type: does not use during the past year weight has: remained stable well-balanced diet: daily or most days daily servings fruits/ve-4 caffeine: No (Quit due to acid reflux. Occasional decaf.) Type(s) of exercise: walking and bicycling frequency: 3-4 times per week Evaluation Evaluation Baseline heart rate: 135 Variability: Moderate (11-25) monitor accelerations: Present Monitor Decelerations: Absent Contraction Frequency (minutes): 15 Uterine Contraction Intensity: Mild Category of Tracing: Reactive Status: Category l Cervical dilation (cm): 1 Cervical effacement (%): 70 station: -2 Diagnosis, Plan/Disposition Plan/Disposition Plan: Home with labor precautions. OB Disposition: home
== END 2020-07-27 21:15 | disposition home or self-care (01) ==
LOC: LABOR 20:02 → OB 07-29 08:06
PROVIDERS: PCP Family Medicine; Referring Provider Obstetrics & Gynecology; Visit Provider Obstetrics & Gynecology
DX: O47.1 False labor at or after 37 completed weeks of gestation (principal); Z3A.38 38 weeks gestation of pregnancy
CPT/HCPCS: 59025; G0378; G0379

== ENCOUNTER 2020-07-29 18:55 | Observation (INO) | payer OTHER, MEDICAID, SELFPAY ==
--- NOTE | 2020-07-29 20:34 | PM.OBTRLD ---
Visit Information Visit Information Date of evaluation: 07/29/20 Primary OB Provider: Ashli Rodgers On-call OB Provider: Lana Rocha Reason for Evaluation: Yes rule out labor Vital Signs Vital Signs: Temperature 97.5? blood pressure 138/78 heart rate 93 PFSH Medical History (Updated 07/29/20 @ 21:28 by Lana Rocha, DO) Acute low back pain Acute thoracic back pain (~10/2019) Anxiety with depression (~10/2018) Bacterial vaginosis (~02/2019) Body posture problem Cervical somatic dysfunction (~09/2019) Chronic low back pain without sciatica (~09/2019) Chronic neck pain (~09/2019) Colicky epigastric pain Cranial somatic dysfunction (~09/2019) Depression (08/2018) Gastritis Generalized anxiety disorder with panic attacks (~10/2018) GERD with esophagitis Healthy adult Heartburn during History of gastroesophageal reflux (GERD) (~05/2018) Injury, unspecified, sequela Lumbar region somatic dysfunction (~09/2019) Marital dysfunction Neck stiffness (~10/2019) Paresthesia of lower extremity (~10/2019) Pelvic somatic dysfunction (~09/2019) depression (~02/2016) Right ear pain Sacral region somatic dysfunction (~09/2019) Seasonal allergies (~2000) Segmental and somatic dysfunction of abdomen and other regions (~10/2019) Sinus headache Somatic dysfunction of left lower extremity (~04/2019) Swallowing difficulty Swallowing pain Tension type headache (~09/2019) Thoracic region somatic dysfunction (~09/2019) Vaginal delivery (~02/2016) Surgical History (Updated 12/21/19 @ 09:53 by Shelley Roman RN) [place] teeth extracted Family History (Updated 12/21/19 @ 10:01 by Shelley Roman RN) Mother Age: 65 Hypertension Pacemaker Sister Age: 32 Asthma Sister Age: 33 Asthma Grandfather Pacemaker Alzheimer's dementia Diverticulitis Grandfather Cancer Grandmother Breast cancer Father No problems noted. Grandmother Cancer Social History marital status: number of children: 1 household members: spouse lives independently: Yes caregiver/support person: No housing: house pets and animals: No education level: college ([employer] general education) occupational status: unemployed and previously employed current occupational exposures/hazards: No eliane/advent: Christianity special eliane needs: No travel history: recent (Was in [place] x 1 month 2019.) seatbelt use: always Smoking Status: Never smoker second hand exposure: Yes (Grandma, but she smokes outside.) alcohol intake: former (Pre-, occasional. ) substance use type: does not use during the past year weight has: remained stable well-balanced diet: daily or most days daily servings fruits/ve-4 caffeine: No (Quit due to acid reflux. Occasional decaf.) Type(s) of exercise: walking and bicycling frequency: 3-4 times per week Evaluation Evaluation Baseline heart rate: 130 Variability: Moderate (11-25) monitor accelerations: Present Monitor Decelerations: Absent Contraction Frequency (minutes): 3 Category of Tracing: Reactive Cervical dilation (cm): 2 Cervical effacement (%): 80 station: -1 Diagnosis, Plan/Disposition Final Diagnosis (1) 38 weeks gestation of : Status: Acute Plan/Disposition Plan: 30-year-old at 38 weeks and 6 days gestation here for labor check. She was monitored over 2 hours without cervical change. NST reactive. She will discharge home and follow-up with Dr. Rodgers tomorrow. OB Disposition: home
[2020-07-29] MEDS: MORPHINE 10 MG/ML INJ IM (20:41)
== END 2020-07-29 20:55 | disposition home or self-care (01) ==
PROVIDERS: Admitting Provider Family Medicine; PCP Family Medicine; Referring Provider Family Medicine; Visit Provider Family Medicine
DX: O47.1 False labor at or after 37 completed weeks of gestation (principal); Z3A.38 38 weeks gestation of pregnancy
CPT/HCPCS: 59025; 59050; G0378; G0379; J2270

== ENCOUNTER 2020-07-30 13:14 | Inpatient (IN) | payer OTHER, MEDICAID, SELFPAY ==
[2020-07-30] VITALS (10 sets, daily range): BP systolic 119–144; BP diastolic 71–91; PULSE 53–91; RESP 13–20; TEMP 36.3–36.8; O2SAT 92–100
--- NOTE | 2020-07-30 13:38 | PM.OBHP.1 ---
OB HPI Date/Time Date of admission: 07/30/20 Date Patient Seen: 07/30/20 Time Patient Seen: 13:38 History of Present Condition Chief complaint: OBS : 2 Para: 1 Estimated Date of Delivery: 08/06/20 Estimated Gestational Age (weeks): 39 Narrative: Annika Stevenson is a 30 year old female Admitted in active labor History of Present care: good care, initiated at week # (7), number of visits (11) and pounds weight gain (53) Dating criteria: LMP confirmed by 1st trimester US Ultrasounds: normal mid trimester US Obstetrical complications: none Medical complications: none Preadmission Labs Blood type: O (+) positive -: Antibody screen: negative, GBS status: negative, HBsAG: negative, HIV: negative and RPR/VDLR: negative -: Chlamydia screen: not detected and Gonorrhea screen: not detected -: Rubella: immune and Varicella: immune HCAB: negative Quad screen: Normal 1 hr GTT: 122 Prior (ies) History: 02/14/2016 38.5 weeks vaginal delivery female infant 5 lb 4 oz Evaluation Evaluation Baseline heart rate: 120 Variability: Moderate (11-25) monitor accelerations: Present Monitor Decelerations: Absent Contraction Frequency (minutes): 4 Uterine Contraction Intensity: Moderate Category of Tracing: Reactive Status: Category l Cervical dilation (cm): 6 Cervical effacement (%): 80 station: -3 [facility] Medical History (Updated 07/29/20 @ 21:28 by Lana Rocha DO) Acute low back pain Acute thoracic back pain (~10/2019) Anxiety with depression (~10/2018) Bacterial vaginosis (~02/2019) Body posture problem Cervical somatic dysfunction (~09/2019) Chronic low back pain without sciatica (~09/2019) Chronic neck pain (~09/2019) Colicky epigastric pain Cranial somatic dysfunction (~09/2019) Depression (08/2018) Gastritis Generalized anxiety disorder with panic attacks (~10/2018) GERD with esophagitis Healthy adult Heartburn during History of gastroesophageal reflux (GERD) (~05/2018) Injury, unspecified, sequela Lumbar region somatic dysfunction (~09/2019) Marital dysfunction Neck stiffness (~10/2019) Paresthesia of lower extremity (~10/2019) Pelvic somatic dysfunction (~09/2019) depression (~02/2016) Right ear pain Sacral region somatic dysfunction (~09/2019) Seasonal allergies (~2000) Segmental and somatic dysfunction of abdomen and other regions (~10/2019) Sinus headache Somatic dysfunction of left lower extremity (~04/2019) Swallowing difficulty Swallowing pain Tension type headache (~09/2019) Thoracic region somatic dysfunction (~09/2019) Vaginal delivery (~02/2016) Surgical History (Updated 12/21/19 @ 09:53 by Shelley Roman RN) Lenore teeth extracted Family History (Updated 12/21/19 @ 10:01 by Shelley Roman, BIANCA) Mother Age: 65 Hypertension Pacemaker Sister Age: 32 Asthma Sister Age: 33 Asthma Grandfather Pacemaker Alzheimer's dementia Diverticulitis Grandfather Cancer Grandmother Breast cancer Father No problems noted. Grandmother Cancer Social History marital status: number of children: 1 household members: spouse lives independently: Yes caregiver/support person: No housing: house pets and animals: No education level: college ([employer] general education) occupational status: unemployed and previously employed current occupational exposures/hazards: No eliane/jewish: Confucianist special eliane needs: No travel history: recent (Was in [place] x 1 month 2019.) seatbelt use: always Smoking Status: Never smoker second hand exposure: Yes (Grandma, but she smokes outside.) alcohol intake: former (Pre-, occasional. ) substance use type: does not use during the past year weight has: remained stable well-balanced diet: daily or most days daily servings fruits/ve-4 caffeine: No (Quit due to acid reflux. Occasional decaf.) Type(s) of exercise: walking and bicycling frequency: 3-4 times per week Meds Home Medications and Allergies Home Medications Medication Instructions Recorded Confirmed Type omega-3 fatty acids 500 mg capsule 500 mg PO DAILY #30 cap 01/19/20 07/23/20 Rx vit no.116-iron 28 1 pkg PO DAILY #60 each 02/05/20 07/23/20 Rx mg-folic acid 800 mcg-dha 200 mg oral pack Maternity Support Belt/ Belly Band #1 ea 04/30/20 07/23/20 Rx Allergies Allergy/AdvReac Type Severity Reaction Status Date / Time ranitidine [From Zantac] Allergy Mild throat Verified 07/16/20 11:53 swelling sertraline [From Zoloft] AdvReac Severe stomach Verified 07/16/20 11:53 upset and jitters Review of Systems Review of Systems Narrative: Patient denies any leakage of fluid. Good movement. No headaches, scotomata, epigastric pain. Patient has been nuno for the past 2 days received Demerol last night and got some minimal sleep. She continues to contract regularly and was advised to come in for evaluation. ROS: Yes All systems reviewed with the patient and are negative except as otherwise documented Exam Vital Signs (past 8 hours): Blood pressure 133/91, pulse of 90, temperature 36 Narrative Exam Narrative: HEENT exam within normal limits. Lungs are clear to auscultation percussion. Heart is regular rate and rhythm no S3-S4 murmurs. Abdomen is gravid. Fetus is vertex. Extremities without edema and nontender. Objective Labs Result Diagrams: 07/30/20 14:15 Assessment and Plan Assessment and Plan Assessment and Plan narrative: 39 week gestation in active labor. Patient requests nitrous oxide for pain control. Anticipate vaginal delivery.
[2020-07-30] MEDS: CALCIUM CARBONATE 500 MG TAB 1000 MG PO (14:05)
[2020-07-30 14:38] LABS: Add Manual Diff / Slide Review NO; Basophils Absolute Auto 100 /uL (0-100); Basophils Percent Auto 0.3 % (0-2); Eosinophils Absolute Auto 100 /uL (0-450); Eosinophils Percent Auto 0.7 % (2-4); Hematocrit 38.5 % (36-46); Lymphocytes Absolute Auto 1700 /uL (1100-4500); Lymphocytes Percent Auto 11.3 % (25-40); Mean Corpuscular HGB Conc 33.9 % (30-36); Mean Corpuscular Hemoglobin 29.1 PG (26-34); Mean Corpuscular Volume 85.7 fL (80-100); Monocytes Absolute Auto 900 /uL (0-900); Monocytes Percent Auto 6.3 % (3-14); Neutrophils Absolute Auto 12000 /uL (1500-7000); Neutrophils Percent Auto 81.4 % (50-75); Platelet Count 311 X10^3/uL (150-400); Red Blood Cell Count 4.49 X10^6/uL (4.0-5.2); Red Cell Distribution Width 13.2 % (11.6-14.8); White Blood Cell Count 14.7 X10^3/uL (4.5-11.0)
[2020-07-30 15:32] LABS: COVID19 - ADMIT (NP swab/PCR) Negative (Negative)
[2020-07-30] MEDS: CEFAZOLIN 1 GM VIAL 2 GM IV (16:50)
--- NOTE | 2020-07-30 16:54 | SUR.OPER ---
FHT's 128. Time of live female @1651. Placenta and cord blood to OB with OB Rn
--- NOTE | 2020-07-30 16:58 | SUR.OPER ---
Supine on Padded OR bed, head on pillow, safety belt at thigh, arms secured on padded arm boards at <90 degrees abduction. Bump under right buttock. Legs uncrossed with pillow under knees, gel pad to heels, tape over blanket to lower legs.
--- NOTE | 2020-07-30 17:43 | PM.PREOP ---
Pre-operative Note COVID-19 COVID-19 status: Negative Result date/Date tested (Pos, Neg/Pending): 07/30/20 Interval Note History & Physical reviewed/Exam performed by Physician: Yes Changes to H&P: Yes H&P completed within 30 days and has changed as indicated here:: baby found to be breech
--- NOTE | 2020-07-30 17:43 | PM.OBPNLAB ---
Date/Time Date Patient Seen: 07/30/20 Time Patient Seen: 16:30 Pain Control Pain control: other (Using nitrous oxide) Pelvic Exam Dilation (cm): 10 Effacement (%): 100 station: -2 Comments: Breech detected Contractions Contractions on admission: regular Monitor mode: External Contraction pattern: Regular Contraction intensity: Strong/Firm Status status: Category l Heart Rate Baseline: 120 Monitor Accelerations: Present Monitor Decelerations: Absent Monitor Variability: Moderate Assessment and Plan Assessment: other (Breech presentation detected) Plan:
[2020-07-30] MEDS: OXYCODONE IR 5 MG TABLET PO ×2 (17:44→18:14)
--- NOTE | 2020-07-30 17:47 | P.OP_ITS ---
Operative Date/Time/Diagnoses Date of procedure: 07/30/20 Time of procedure: 17:47 Pre-op diagnosis: Breech presentation and completely dilated Post-op diagnosis: same Procedure & Clinicians Procedure: Primary low-transverse section Same procedure as scheduled: Yes Indications: Breech presentation in active labor fully dilated Surgeon: Ashli Rodgers Lens Dotter: Wu Pa Anesthesia Type: General Operative Notes Findings: Normal tubes, ovaries, uterus. Viable female infant with Apgars of 8 and 9 weighing 7 lb 4 oz Closure Type: primary Specimen(s): cord blood Intraoperative meds administered: Ketorolac and Pitocin Applied: Catheter (Edward) Estimated Blood Loss (mL): 200 Blood products transfused: none Procedure in detail: The patient was brought to the operating room where she underwent a general for anesthesia. She was placed in a supine position with a left lateral tilt. A Edward catheter was placed. Pulsatile stockings were placed and functional throughout the case. 2 g of Ancef were given IV prior to the incision. Warming was in place. The patient was prepped and draped in usual sterile fashion. A low transverse incision was made with a scalpel and the incision was carried down to the fascial layer which was incised transversely with scissors. The assistant reading teacher did his side of the incision. The midline attachments are superiorly and inferiorly. The rectus muscles were in the midline and the peritoneal incision was made with no damage to internal structures. The peritoneum was incised and superiorly and inferiorly. The incision was stretched with the surgeon and assistant reading teacher placing traction. Bladder blade was placed and a bladder flap was developed and the bladder held away from the lower uterine segment. An incision was made in the uterus with the scalpel and the incision was extended with stretching. The breech was elevated out of the abdomen and the infant wrapped with a wet towel. The infant was delivered to the chest and rotated to deliver the arms. With fundal pressure by the assistant reading teacher the baby was delivered. The infant was bulb suctioned for clear fluid and handed off to the warmer. Cord blood was collected. The placenta delivered spontaneously with traction. The uterus was cleaned with clean laps. The uterine incision was closed in 2 layers of 0 chromic suture the first a running locking layer the second an imbricating layer. The assistant reading teacher was helping to expose the incision. The bladder peritoneum was repaired with 2-0 Vicryl suture. The gutters were cleaned of any remaining fluids and ovaries and tubes were observed to be normal. Adequate hemostasis was noted. The perineum was closed with 2-0 Vicryl suture. The fascia layer was closed with 0 Vicryl suture with 2 stitches. The assistant reading teacher repairing half the incision with helping to retract and expose the incision for the other half. The incision was irrigated and adequate hemostasis noted. The incision was closed with interrupted 3-0 Vicryl sutures and then a subcuticular stitch of 4-0 Vicryl suture. Steri- Strips were placed. The uterus was massaged to remove any clots. The patient went to recovery room in good condition. Counts of instruments and sponges were correct. Dr. Pa was present throughout the case to assist with retraction, fundal pressure to deliver the , and suturing half the fascia. Complications: none [place] Baby 1: Gender: Female Presentation: breech Details: complete Placental Delivery Description: Expressed Cord Vessel Description: 3 Vessels score (1 min): 8 score (5 min): 9 weight: 7 lb 4 oz Post-operative Condition: stable Disposition: other ( Center) Aftercare: routine postop
[2020-07-30] MEDS: fentaNYL 100 MCG/2 ML INJ IV ×4 (17:49→18:18)
[2020-07-30] MEDS: ACETAMINOPHEN 325 MG TABLET 650 MG PO (19:43)
[2020-07-30] MEDS: LACTATED RINGERS 1,000 ML 100 ML IV (20:03)
[2020-07-30] MEDS: HYDROMORPHONE 1 MG INJ IV (20:44)
[2020-07-30] MEDS: OXYCODONE IR 10 MG TABLET PO (22:23)
[2020-07-30] MEDS: KETOROLAC 30 MG/ML VIAL IV (23:38)
[2020-07-31] MEDS: ACETAMINOPHEN 325 MG TABLET 650 MG PO ×4 (02:00→22:25)
[2020-07-31] MEDS: OXYCODONE IR 10 MG TABLET PO ×2 (02:01→05:55)
[2020-07-31] MEDS: KETOROLAC 30 MG/ML VIAL IV ×2 (05:53→12:02)
[2020-07-31 07:43] LABS: Hematocrit 36.3 % (36-46)
[2020-07-31] MEDS: DOCUSATE 250 MG CAPSULE PO (08:46)
[2020-07-31] MEDS: OXYCODONE IR 5 MG TABLET 10 MG PO ×4 (10:12→22:25)
[2020-07-31] MEDS: IBUPROFEN 600 MG TABLET PO (18:27)
--- NOTE | 2020-07-31 20:34 | PM.OBPN.1 ---
Subjective - OB Subjective Patient comments: incisional pain baby status: doing well feeding status: exclusively breast feeding Date Patient Seen: 07/31/20 Time Patient Seen: 20:35 Interval history: Patient is postoperative day 1 primary section for breech presentation. She is ambulatory. She is passing gas. She is tolerating regular diet and urinating well. Her incision pain is improving. Exam Vital Signs (past 8 hours): Blood pressure 115/63, pulse of 80, temperature 98.4? Oxygen Delivery Method Room Air Oxygen Flow Rate 2 Narrative Exam Narrative: Abdomen is soft, with minimal distension and non tender. Dressing is clean, dry, intact. Mild lochia. Extremities without edema and nontender. Objective Labs Result Diagrams: 07/31/20 06:24 Labs: Laboratory Results - last 24 hr 07/31/20 06:24 Hgb 12.0 Hct 36.3 Assessment & Plan Assessment and Plan (1) Delivery by section for breech presentation: Status: Acute Plan day: 1 plan OB: routine postop care Time Spent With Patient Time: Total time spent is greater than 50% in coordination of care (as documented) at patient's floor/unit and/or counseling patient: Time with patient: less than 15 minutes
[2020-08-01] MEDS: IBUPROFEN 600 MG TABLET PO ×2 (00:54→08:37)
[2020-08-01] MEDS: OXYCODONE IR 5 MG TABLET 10 MG PO (04:50)
[2020-08-01] MEDS: ACETAMINOPHEN 325 MG TABLET 650 MG PO (04:50)
--- NOTE | 2020-08-01 07:46 | P.DS_ITS ---
Discharge Providers Provider Date of admission: 07/30/20 13:14 Discharge Date: 08/01/20 Primary care physician: Maximilian Dorantes DO Consults: 07/30/20 13:55 Consult to Anesthesiology Urgent Comment: Consulting Provider: Anesthesiologist Reason for consultation: Epidural Has provider been notified: No 07/30/20 19:26 Consult to Flexographic Press Plate Setter Routine Comment: Discharge provider: Ashli Rodgers MD Summary Hospital Course Date Patient Seen: 08/01/20 Time Patient Seen: 07:47 Diagnoses: 39 week gestation presented in labor and breech presentation Hospital Course: Patient arrived on Labor and delivery in active labor. She was found to the in breech presentation. She underwent an emergency section. Postoperatively patient has done well. She is urinating and ambulating well. She is passing gas. Pain is improving. Mild bleeding. Peripartum Data Infant Delivery Method: Emergency Section (Fully dilated in breech presentation) complications: none [place] 1: Gender: Female Disposition of : home Discharge Diagnosis (1) Delivery by section for breech presentation: Status: Acute Status at Discharge Cognitive/behavioral status at discharge: oriented Functional status at discharge: independent ambulation Overall status at discharge: patient is progressing back to baseline Time Spent with Patient Time attestation: Total time spent providing and/or coordinating discharge services: Time spent: Less than 30 minutes Objective Labs Result Diagrams: 07/31/20 06:24 Exam Vital Signs (past 8 hours): Blood pressure 138/82, pulse of 58, temperature 97.8? Oxygen Delivery Method Room Air Oxygen Flow Rate 2 Narrative Exam Narrative: Abdomen is soft, nontender. Uterus is firm, at U, appropriately tender. Dressing is clean, dry, intact. Mild lochia. Extremities with trace edema and nontender. Patient is Rh positive, rubella immune, received the Tdap in the 3rd trimester. Discharge Plan Discharge Plan Patient Disposition: Home Discharge orders & Medications Prescriptions: New ibuprofen 600 mg Tablet 600 mg PO Q6H PRN (Reason: Fever/Mild Pain (1-3)) Qty: 30 RF: 0 docusate sodium 250 mg Capsule 250 mg PO DAILY Qty: 20 RF: 0 oxycodone-acetaminophen 5-325 mg tablet 1 tab PO Q4-6H PRN (Reason: pain) Qty: 40 RF: 0 Continued omega-3 fatty acids 500 mg capsule 500 mg PO DAILY Qty: 30 RF: 5 Expecta 28 mg iron-800 mcg-200 mg combo pack 1 pkg PO DAILY Qty: 60 RF: 5 (DME) Maternity Support Belt/ Belly Band See Rx Instructions .Route .MEDSUPPLY Qty: 1 RF: 0 Follow up/Referrals: Ashli Rodgers MD [Physician] - 1 Week Maximilian Dorantes DO [Primary Care Provider] - Diet/Activity/Treatments Diet: Regular Activity: nothing in vagina or lifting over 20 pounds for 6 weeks Skin/Wound/Dressing Care Report to your healthcare provider any signs of infection, such as:: chills, fever and increased pain Dressing: leave dressing on until 1 wek postop appointment Discharge Data Primary Care Provider: Maximilian Dorantes
[2020-08-01] MEDS: DOCUSATE 250 MG CAPSULE PO (08:37)
== END 2020-08-01 11:30 | disposition home or self-care (01) | DRG 540 ==
PROVIDERS: Obstetrics & Gynecology; Admitting Provider Specialist; PCP Family Medicine; Referring Provider Specialist; Visit Provider Specialist
PROC: 10D00Z1 Extraction of Products of Conception, Low, Open Approach (ICD-10-PCS; CPT 59514; principal; 2020-07-30 16:00)
DX: O64.1XX0 Obstructed labor due to breech presentation, not applicable or unspecified (principal); O47.1 False labor at or after 37 completed weeks of gestation; Z3A.39 39 weeks gestation of pregnancy; Z37.0 Single live birth; Z20.822 Contact with and (suspected) exposure to COVID-19
CPT/HCPCS: 36415; 59025; 59050; 59514; 85014; 85018; 85025; 86850; 86900; 86901; 87635; C9803; G0378; G0379; J0690; J1100; J1170; J1885; J2270; J2405; J3010

== ENCOUNTER 2020-09-30 17:56 | Emergency (ER) | payer OTHER, MEDICAID, SELFPAY ==
[2020-09-30 18:11] VITALS: BP 134/82; PULSE 74; RESP 15; TEMP 36.5; O2SAT 98; BMI 30.5
[2020-09-30 21:08] VITALS: BP 153/86; PULSE 62; RESP 16; O2SAT 98
--- NOTE | 2020-09-30 22:11 | DI.CT.S_ITS ---
PROCEDURE: CT ANGIO HEAD AND NECK INDICATIONS: Limb numbness TECHNIQUE: Pre-contrast 4.5 mm thick sections acquired from the foramen magnum to the vertex. After the administration of intravenous contrast, 1 mm thick sections acquired from the aortic arch through the [place] of [place]. Post-contrast 4.5 mm thick sections then re-acquired from the foramen magnum to the vertex. 3-dimensional nghpsrc-sxjfyoade-enrkcrpuyx (MIP) and/or volume rendering reformats were acquired of the central intracranial vasculature and neck separately. COMPARISON: None. FINDINGS: Image quality: Excellent. BRAIN: CSF spaces: Ventricles are normal in size and shape. Basal cisterns are patent. No extra-axial fluid collections. Brain: No midline shift. No intracranial bleeds or masses. Pierce-white matter interface appears intact. Skull and face: Calvarium and facial bones appear intact, without suspicious lesions. Orbits appear normal. Sinuses: Sinuses and mastoids are clear. HEAD CT ANGIOGRAPHY: Anterior circulation: Intracranial internal carotid arteries are normal in size and flow. The flow within the paired anterior cerebral arteries is normal and symmetric. The flow within the middle cerebral arteries is normal and symmetric. The anterior communicating artery is seen. No aneurysms are seen. Posterior circulation: Visualized portions of the vertebral arteries demonstrate normal caliber, and join to form a normal appearing basilar artery. Flow within the posterior cerebral arteries is normal and symmetric. No aneurysms are seen. Dural sinuses demonstrate normal postcontrast enhancement. NECK CT ANGIOGRAPHY: Carotid system: The great vessels demonstrate a conventional anatomy as they arise from the aortic arch. The origins of the common carotid arteries appear patent. The common carotid arteries demonstrate normal caliber and courses. The bifurcation regions are both widely patent. The internal carotid arteries demonstrate normal calibers and courses. Posterior circulation: The origins of the vertebral arteries both appear widely patent. The more superior extracranial portions of both vertebral arteries also demonstrate normal courses and calibers. They join to form a normal appearing basilar artery. Soft tissues: Visualized neck soft tissues demonstrate no suspicious abnormalities. Bones: No suspicious bony lesions. Visualized cervical spine appears normally aligned. IMPRESSION: 1. No acute intracranial disease process. 2. No large vessel occlusion, vascular stenosis, vascular dissection or aneurysm. Any quantitative measurements of stenosis were performed using NASCET criteria. Dictated by: Eduarda Rader MD, PhD on 10/01/2020 at 8:09 Approved by: Eduarda Rader MD, PhD on 10/01/2020 at 8:15
--- NOTE | 2020-09-30 22:12 | ED.EXTPRO ---
HPI - Extremity Problem General Chief complaint: Extremity Problem,Nontraumatic Stated complaint: Tingling and Cool Feeling on Face into Neck Time Seen by Provider: 09/30/20 22:02 Source: patient Mode of arrival: Ambulatory History of Present Illness HPI Narrative: Patient seen by chiropractor 2 or 3 weeks ago for neck and back adjustments. Since adjustments has had bilateral hands and feet numbness and tingling ankle sensation. No weakness. No facial droop or slurred speech. Denies any neck pain or back pain. Patient 2 months. Denies Related Data Home Medications Medication Instructions Recorded Confirmed escitalopram oxalate 10 mg tablet 10 mg PO DAILY 09/30/20 09/30/20 montelukast 10 mg tablet 10 mg PO DAILY 09/30/20 09/30/20 Previous Rx's Medication Instructions Recorded norethindrone 1.5 mg-ethinyl 1 tab PO DAILY #28 tab 09/05/20 estradiol 30 mcg(21)/iron 75 mg(7) tablet Allergies Allergy/AdvReac Type Severity Reaction Status Date / Time ranitidine [From Zantac] Allergy Mild throat Verified 09/30/20 18:15 swelling sertraline [From Zoloft] AdvReac Severe stomach Verified 09/30/20 18:15 upset and jitters Review of Systems Review of Systems Narrative: GENERAL: Denies chills, fatigue, malaise, fever, sweats. HEENT: Denies sinus pain, ear pain, sore throat RESPIRATORY: Denies dyspnea, cough CARDIOVASCULAR: Denies chest pain, palpitations GASTROINTESTINAL: Denies nausea, vomiting, abdominal pain : Denies dysuria, frequency, hematuria MUSCULOSKELETAL: denies muscle or bony pain SKIN: Denies rash, skin lesions NEUROLOGIC: Denies weakness, complaint numbness ROS Unobtainable: All systems reviewed & are unremarkable except as noted in HPI and below Patient History Medical History Acute left-sided thoracic back pain Acute low back pain Acute thoracic back pain (~10/2019) Anxiety with depression (~10/2018) Bacterial vaginosis (~02/2019) Body posture problem Cervical somatic dysfunction (~09/2019) Chronic low back pain without sciatica (~09/2019) Chronic neck pain (~09/2019) Colicky epigastric pain Cranial somatic dysfunction (~09/2019) Depression (08/2018) Gastritis Generalized anxiety disorder with panic attacks (~10/2018) GERD with esophagitis Healthy adult History of gastroesophageal reflux (GERD) (~05/2018) Injury, unspecified, sequela Lumbar region somatic dysfunction (~09/2019) Marital dysfunction Neck stiffness (~10/2019) Paresthesia of lower extremity (~10/2019) Pelvic somatic dysfunction (~09/2019) depression (~02/2016) Right ear pain Sacral region somatic dysfunction (~09/2019) Seasonal allergies (~2000) Segmental and somatic dysfunction of abdomen and other regions (~10/2019) Sinus headache Skin lesions Somatic dysfunction of left lower extremity (~04/2019) Swallowing difficulty Swallowing pain Tension type headache (~09/2019) Thoracic region somatic dysfunction (~09/2019) Vaginal delivery (~02/2016) Surgical History [place] teeth extracted Family History Mother Age: 66 Hypertension Pacemaker Sister Age: 32 Asthma Sister Age: 33 Asthma Grandfather Pacemaker Alzheimer's dementia Diverticulitis Grandfather Cancer Grandmother Breast cancer Father No problems noted. Grandmother Cancer Social History marital status: number of children: 1 household members: spouse lives independently: Yes caregiver/support person: No housing: house pets and animals: No education level: college occupational status: unemployed and previously employed current occupational exposures/hazards: No eliane/holiness: [employer] special eliane needs: No travel history: recent seatbelt use: always Smoking Status: Never smoker second hand exposure: Yes (Grandma, but she smokes outside.) alcohol intake: former substance use type: does not use during the past year weight has: remained stable well-balanced diet: daily or most days daily servings fruits/ve-4 caffeine: No (Quit due to acid reflux. Occasional decaf.) Type(s) of exercise: walking and bicycling frequency: 3-4 times per week Smoking Status: Never smoker alcohol intake frequency: other Substance Use Type: does not use Exam Narrative Exam Narrative: GENERAL: in no distress, not toxic not dyspneic HEAD: Normocephalic. EYES: Pupils equal round No scleral icterus. No injection no discharge ENT: Mucous membranes moist. NECK: Trachea midline. CARDIOVASCULAR: Regular rate and rhythm without murmurs RESPIRATORY: Clear to auscultation. Breath sounds equal bilaterally. No wheezes, rales, or rhonchi. GASTROINTESTINAL: Abdomen soft, non-tender EXTREMITIES: No gross deformities. BACK: No flank tenderness. NEURO: AOx4. Clear speech no facial droop light touch intact to bilateral face hands and feet but feels cool sensation according the patient with slight numbness. Strong equal science center display builder. Finger-nose intact. Negative pronator drift. Strong bilateral leg lifts. SKIN: Warm and dry PSYCH: Not anxious, is cooperative Initial Vital Signs Initial Vital Signs: Vital Signs Temperature 97.7 F 09/30/20 18:11 Pulse Rate 74 09/30/20 18:11 Respiratory Rate 15 09/30/20 18:11 Blood Pressure 134/82 09/30/20 18:11 Pulse Oximetry 98 09/30/20 18:11 Course Course Course Narrative: No new issues during course of stay Orders Ordered: ED Orders 09/30/20 22:11 CT angio head and neck Stat 09/30/20 22:25 Complete Blood Count AUTO DIFF Stat Comprehensive Metabolic Panel Stat Test Serum,Qual Stat 09/30/20 23:27 EKG-12 Lead Stat Discontinued Medications Sodium Chloride (Normal Saline 0.9%) 1,000 mls @ 1,000 mls/hr IV BOLUS ONE Stop: 09/30/20 23:09 Last Infusion: 10/01/20 00:15 Dose: 0 mls/hr Documented by: Admin: 09/30/20 23:07 Dose: 1,000 mls/hr Documented by: SIRI Ibuprofen (Ibuprofen 400 Mg Tablet) 800 mg PO NOW ONE Stop: 09/30/20 23:11 Last Admin: 09/30/20 23:13 Dose: 800 mg Documented by: BRAIN Methylprednisolone (Methylprednisolone 125 Mg/2 Ml Vial) 125 mg IV NOW ONE Stop: 09/30/20 22:11 Last Admin: 09/30/20 23:10 Dose: 125 mg Documented by: SIRI Reevaluation(s) Reevaluation #1: Patient states Solu-Medrol did help with some numbness and tingling to the hands and feet. At times movement of the arm is positional and tingling may come back. Reviewed results with her. Agrees with treatment plan. She does have a family doctor to follow up with and get referral for Neurology Time: 00:42 Vital Signs Vital signs: Vital Signs - 8 hr 09/30/20 21:08 09/30/20 22:30 09/30/20 23:30 Pulse Rate 62 66 51 L Respiratory Rate 16 16 16 Blood Pressure 153/86 H 118/69 134/83 Pulse Oximetry 98 99 99 10/01/20 00:52 Pulse Rate 56 L Respiratory Rate 16 Blood Pressure 122/66 Pulse Oximetry 99 MDM - Extremity (Nontraumatic) Differential Diagnosis Differential diagnosis: Likely other (Radiculopathy/vertebral/carotid dissection/electrolyte imbalance, peripheral neuropathy) Lab Data Result diagrams: 09/30/20 22:25 09/30/20 22:25 Labs: Lab Results 09/30/20 09/30/20 09/30/20 Range/Units 22:25 22:25 22:25 WBC 10.4 (4.5-11.0) X10^3/uL RBC 4.87 (4.0-5.2) X10^6/uL Hgb 13.7 (12.0-16.0) g/dL Hct 41.2 (36-46) % MCV 84.6 (80-100) fL MCH 28.2 (26-34) PG MCHC 33.4 (30-36) % RDW 12.8 (11.6-14.8) % Plt Count 394 (150-400) X10^3/uL Neut % (Auto) 65.1 (50-75) % Lymph % (Auto) 26.0 (25-40) % Riley % (Auto) 6.5 (3-14) % Eos % (Auto) 1.7 L (2-4) % Baso % (Auto) 0.7 (0-2) % Neut # (Auto) 6800 (6682-1299) /uL Lymph # (Auto) 2700 (4507-4804) /uL Riley # (Auto) 700 (0-900) /uL Eos # (Auto) 200 (0-450) /uL Baso # (Auto) 100 (0-100) /uL Sodium 139 (137-145) mmol/L Potassium 3.8 (3.4-5.1) mmol/L Chloride 105 (98-107) mmol/L Carbon Dioxide 25 (22-32) mmol/L BUN 5 L (7-17) mg/dL Creatinine 0.53 (0.52-1.04) mg/dL Estimated GFR > 60.0 (>60) mL/min BUN/Creatinine Ratio 9.4 (6-22) Glucose 90 (70-100) mg/dL Calcium 9.6 (8.4-10.2) mg/dL Total Bilirubin 0.4 (0.2-1.3) mg/dL AST 24 (14-36) IU/L ALT 26 (<35) IU/L Alkaline Phosphatase 148 H (38-126) U/L Total Protein 8.0 (6.3-8.2) g/dL Albumin 4.7 (3.5-5.0) g/dL Globulin 3.3 (1.7-4.1) g/dL Albumin/Globulin Ratio 1.4 (1.0-2.8) Serum , Qual Negative (Negative) Imaging Data CT scan - head: Radiologist's Impression: CT head no acute process. CT angiogram of head and neck no acute process. ECG Data Interpretation: Sinus bradycardia rate [address] elevation or depression MDM Narrative Medical decision making narrative: Appropriate for discharge home. Exam reassuring imaging reassuring. Reviewed return precautions with patient. Agrees with treatment plan and follow-up. Discharge Plan Departure Patient Disposition: Home Clinical Impression: Paresthesia Instructions: DI for Peripheral Neuropathy Activity Restrictions/Additional Instructions: See family doctor this week for recheck and to get referral to Neurology for the numbness and tingling to your hands and feet. Return if worsening questions or concerns. Do not continue with chiropractor services. Prescriptions: No Action norethindrone-e.estradiol-iron 1.5 mg-30 mcg (21)/75 mg (7) tablet 1 tab PO DAILY Qty: 28 RF: 11 escitalopram oxalate 10 mg tablet 10 mg PO DAILY RF: 0 montelukast 10 mg tablet 10 mg PO DAILY RF: 0 Referrals: Maximilian Dorantes DO [Primary Care Provider] -
[2020-09-30 22:30] VITALS: BP 118/69; PULSE 66; RESP 16; O2SAT 99
[2020-09-30 22:31] LABS: Add Manual Diff / Slide Review NO; Basophils Absolute Auto 100 /uL (0-100); Basophils Percent Auto 0.7 % (0-2); Eosinophils Absolute Auto 200 /uL (0-450); Eosinophils Percent Auto 1.7 % (2-4); Hematocrit 41.2 % (36-46); Hemoglobin 13.7 g/dL (12.0-16.0); Lymphocytes Absolute Auto 2700 /uL (1100-4500); Mean Corpuscular HGB Conc 33.4 % (30-36); Mean Corpuscular Hemoglobin 28.2 PG (26-34); Mean Corpuscular Volume 84.6 fL (80-100); Monocytes Absolute Auto 700 /uL (0-900); Monocytes Percent Auto 6.5 % (3-14); Neutrophils Absolute Auto 6800 /uL (1500-7000); Neutrophils Percent Auto 65.1 % (50-75); Platelet Count 394 X10^3/uL (150-400); Red Blood Cell Count 4.87 X10^6/uL (4.0-5.2); Red Cell Distribution Width 12.8 % (11.6-14.8); White Blood Cell Count 10.4 X10^3/uL (4.5-11.0)
[2020-09-30 22:43] LABS: Alanine Aminotransferase 26 IU/L (<35); Albumin 4.7 g/dL (3.5-5.0); Albumin Globulin Ratio 1.4 (1.0-2.8); Alkaline Phosphatase 148 U/L (38-126); Aspartate Aminotransferase 24 IU/L (14-36); BUN Creatinine Ratio 9.4 (6-22); Bilirubin Total 0.4 mg/dL (0.2-1.3); Blood Urea Nitrogen 5 mg/dL (7-17); Calcium 9.6 mg/dL (8.4-10.2); Carbon Dioxide 25 mmol/L (22-32); Chloride 105 mmol/L (98-107); Estimated Glomerular Filt Rate > 60.0 mL/min (>60); Globulin 3.3 g/dL (1.7-4.1); Glucose 90 mg/dL (70-100); HEMOLYSIS < 15 (0-50); Potassium 3.8 mmol/L (3.4-5.1); Sodium 139 mmol/L (137-145)
[2020-09-30 22:47] LABS: Pregnancy Test Serum,Qual Negative (Negative)
[2020-09-30] MEDS: SODIUM CHLORIDE 0.9% 1,000 ML 1000 ML IV (23:07)
[2020-09-30] MEDS: methylPREDNISolone 125 MG/2 ML VIAL IV (23:10)
[2020-09-30] MEDS: IBUPROFEN 400 MG TABLET 800 MG PO (23:13)
--- NOTE | 2020-09-30 23:27 | PC.NURSE ---
Heart rate is in the 40's consistently. EKG ordered, patient placed on mold checker.
[2020-09-30 23:30] VITALS: BP 134/83; PULSE 51; RESP 16; O2SAT 99
[2020-10-01 00:52] VITALS: BP 122/66; PULSE 56; RESP 16; O2SAT 99
== END 2020-10-01 00:53 | disposition home or self-care (01) ==
PROVIDERS: Emergency Provider Emergency Medicine; PCP Family Medicine
DX: R20.2 Paresthesia of skin (principal); R07.9 Chest pain, unspecified
CPT/HCPCS: 36415; 70496; 70498; 80053; 84703; 85025; 93005; 93010; 96361; 96374; 99284; J2930

== ENCOUNTER → 2020-10-01 12:32 | Outpatient (CLI) | payer OTHER, MEDICAID, SELFPAY ==
--- NOTE | 2020-10-01 12:51 | DI.RAD.S_ITS ---
PROCEDURE: XR CERVICAL SPINE 2V OR 3V INDICATIONS: neck pain with feet and hand tingling TECHNIQUE: 3 view(s) of the cervical spine were acquired. COMPARISON: None. FINDINGS: Bones: No fractures or dislocations to the T1 level. The lateral masses of C1 appear intact on the odontoid view. No suspicious bony lesions. Mild C5-C6 and C6-C7 degenerative disc disease. Mild bilateral C5-C6 and C6-C7 uncovertebral joint hypertrophy. Moderate right and mild left C4-C5 uncovertebral joint hypertrophy. Soft tissues: No prevertebral soft tissue swelling. IMPRESSION: 1. Multilevel degenerative disease. 2. Multilevel uncovertebral arthropathy. 3. No fracture. No acute osseous lesion. If symptoms and/or clinical suspicion for pathology persists, evaluation with MRI should be considered for further assessment. Dictated by: Eduarda Rader MD, PhD on 10/01/2020 at 16:10 Approved by: Eduarda Rader MD, PhD on 10/01/2020 at 16:11
[2020-10-01 13:06] LABS: Add Manual Diff / Slide Review NO; Basophils Absolute Auto 0 /uL (0-100); Basophils Percent Auto 0.4 % (0-2); Eosinophils Absolute Auto 0 /uL (0-450); Hematocrit 42.4 % (36-46); Hemoglobin 13.9 g/dL (12.0-16.0); Lymphocytes Absolute Auto 900 /uL (1100-4500); Lymphocytes Percent Auto 7.8 % (25-40); Mean Corpuscular HGB Conc 32.7 % (30-36); Mean Corpuscular Hemoglobin 28.1 PG (26-34); Mean Corpuscular Volume 85.8 fL (80-100); Monocytes Absolute Auto 400 /uL (0-900); Monocytes Percent Auto 3.3 % (3-14); Neutrophils Absolute Auto 10300 /uL (1500-7000); Neutrophils Percent Auto 88.5 % (50-75); Platelet Count 475 X10^3/uL (150-400); Red Blood Cell Count 4.94 X10^6/uL (4.0-5.2); Red Cell Distribution Width 13.1 % (11.6-14.8); White Blood Cell Count 11.6 X10^3/uL (4.5-11.0)
[2020-10-01 13:18] LABS: Alanine Aminotransferase 27 IU/L (<35); Albumin 4.8 g/dL (3.5-5.0); Albumin Globulin Ratio 1.4 (1.0-2.8); Alkaline Phosphatase 134 U/L (38-126); Aspartate Aminotransferase 24 IU/L (14-36); BUN Creatinine Ratio 12.7 (6-22); Bilirubin Total 0.4 mg/dL (0.2-1.3); Blood Urea Nitrogen 7 mg/dL (7-17); Calcium 10.1 mg/dL (8.4-10.2); Carbon Dioxide 25 mmol/L (22-32); Chloride 107 mmol/L (98-107); Estimated Glomerular Filt Rate > 60.0 mL/min (>60); Globulin 3.4 g/dL (1.7-4.1); Glucose 152 mg/dL (70-100); HEMOLYSIS < 15 (0-50); Magnesium 1.8 mg/dL (1.6-2.3); Potassium 4.6 mmol/L (3.4-5.1); Sodium 141 mmol/L (137-145); Total Protein 8.2 g/dL (6.3-8.2)
[2020-10-01 13:49] LABS: Thyroid Stimulating Hormone 0.314 uIU/mL (0.47-4.68)
[2020-10-01 14:07] LABS: Vitamin B12 Reflex MMA if <400 910 pg/mL (239-931)
== END ==
PROVIDERS: PCP Family Medicine; Referring Provider Family Medicine; Visit Provider Family Medicine
DX: F41.8 Other specified anxiety disorders (principal); G89.29 Other chronic pain; M54.2 Cervicalgia; R20.2 Paresthesia of skin
CPT/HCPCS: 36415; 72040; 80053; 82607; 83735; 84443; 85025

== ENCOUNTER → 2021-03-18 10:35 | Outpatient (CLI) | payer OTHER, MEDICAID, SELFPAY ==
[2021-03-18 11:32] LABS: Add Manual Diff / Slide Review NO; Basophils Absolute Auto 0 /uL (0-100); Basophils Percent Auto 0.6 % (0-2); Eosinophils Absolute Auto 500 /uL (0-450); Eosinophils Percent Auto 6.3 % (2-4); Hematocrit 41.3 % (36-46); Hemoglobin 13.8 g/dL (12.0-16.0); Lymphocytes Absolute Auto 2100 /uL (1100-4500); Lymphocytes Percent Auto 26.1 % (25-40); Mean Corpuscular HGB Conc 33.5 % (30-36); Mean Corpuscular Hemoglobin 28.1 PG (26-34); Mean Corpuscular Volume 83.8 fL (80-100); Monocytes Absolute Auto 500 /uL (0-900); Monocytes Percent Auto 6.8 % (3-14); Neutrophils Absolute Auto 4800 /uL (1500-7000); Neutrophils Percent Auto 60.2 % (50-75); Platelet Count 390 X10^3/uL (150-400); Red Blood Cell Count 4.92 X10^6/uL (4.0-5.2); Red Cell Distribution Width 12.7 % (11.6-14.8)
[2021-03-18 11:51] LABS: Hemoglobin A1C% w Est Avg Glu 5.2 % (4.0-6.0)
[2021-03-18 12:41] LABS: Alanine Aminotransferase 23 IU/L (<35); Albumin 4.3 g/dL (3.5-5.0); Albumin Globulin Ratio 1.5 (1.0-2.8); Alkaline Phosphatase 128 U/L (38-126); Aspartate Aminotransferase 24 IU/L (14-36); Bilirubin Total 0.2 mg/dL (0.2-1.3); Blood Urea Nitrogen 9 mg/dL (7-17); Calcium 9.7 mg/dL (8.4-10.2); Carbon Dioxide 27 mmol/L (22-32); Chloride 104 mmol/L (98-107); Estimated Glomerular Filt Rate > 60.0 mL/min (>60); Globulin 2.9 g/dL (1.7-4.1); Glucose 90 mg/dL (70-100); HEMOLYSIS < 15 (0-50); Potassium 4.4 mmol/L (3.4-5.1); Sodium 139 mmol/L (137-145); Total Protein 7.2 g/dL (6.3-8.2)
[2021-03-18 13:09] LABS: TSH w/ Reflex to FT4 0.76 uIU/mL (0.47-4.68)
== END ==
PROVIDERS: PCP Family Medicine; Referring Provider Family Medicine; Visit Provider Family Medicine
DX: R20.2 Paresthesia of skin (principal); R73.9 Hyperglycemia, unspecified
CPT/HCPCS: 36415; 80053; 83036; 84443; 85025

== ENCOUNTER → 2021-11-17 09:40 | Outpatient (CLI) | payer OTHER, MEDICAID, SELFPAY ==
[2021-11-17 11:28] LABS: Prolactin 10.6 ng/mL (3.0-18.6)
[2021-11-17 11:43] LABS: TSH w/ Reflex to FT4 0.78 uIU/mL (0.47-4.68)
== END ==
PROVIDERS: PCP Family Medicine; Referring Provider Specialist; Visit Provider Specialist
DX: N92.1 Excessive and frequent menstruation with irregular cycle (principal)
CPT/HCPCS: 36415; 84146; 84443

== ENCOUNTER → 2022-03-23 09:58 | Outpatient (CLI) | payer OTHER, MEDICAID, SELFPAY ==
[2022-03-23 10:47] LABS: Influenza A - CEPHEID Flu A NEGATIVE (NEGATIVE); Influenza B - CEPHEID Flu B NEGATIVE (NEGATIVE); Respiratory Syncytial Virus Negative (Negative)
[2022-03-23 10:48] LABS: COVID-19 CEPHEID 4-PLEX PCR Negative (Negative)
== END ==
PROVIDERS: PCP Family Medicine; Visit Provider Nurse Practitioner Family
DX: R05.1 Acute cough (principal); Z20.822 Contact with and (suspected) exposure to COVID-19
CPT/HCPCS: 0241U

== ENCOUNTER → 2022-04-28 10:39 | Outpatient (CLI) | payer OTHER, MEDICAID, SELFPAY ==
[2022-04-28 11:26] LABS: Influenza A - CEPHEID Flu A NEGATIVE (NEGATIVE); Influenza B - CEPHEID Flu B NEGATIVE (NEGATIVE); Respiratory Syncytial Virus Negative (Negative)
[2022-04-28 11:28] LABS: COVID-19 CEPHEID 4-PLEX PCR Negative (Negative)
== END ==
PROVIDERS: PCP Family Medicine; Visit Provider Physician Assistant
DX: J02.9 Acute pharyngitis, unspecified (principal); Z20.822 Contact with and (suspected) exposure to COVID-19
CPT/HCPCS: 0241U; 87070; 87880

== ENCOUNTER → 2022-11-13 09:14 | Outpatient (CLI) | payer OTHER, MEDICAID, SELFPAY ==
[2022-11-13 10:08] LABS: Appearance Urine UA CLEAR; Bilirubin Urine UA NEGATIVE (NEGATIVE); Color Urine UA YELLOW; Glucose Urine UA NEGATIVE (Negative); Ketones Urine UA NEGATIVE (NEGATIVE); Leukocyte Esterase Urine UA NEGATIVE (NEGATIVE); Nitrite Urine UA NEGATIVE (Negative); Occult Blood Urine UA NEGATIVE (Negative); Protein Urine UA NEGATIVE (Negative); Specific Gravity Urine UA 1.015 (1.000-1.035); Urobilinogen Urine UA 0.2 E.U./dL (0.2)
[2022-11-13 10:14] LABS: Bacteria Urine None Seen; Culture Indicated Urine Cult Not Indicated; RBC Urine None Seen (0-5/HPF); Squamous Epithelial Cell Urine None Seen (0-5/HPF); WBC Urine None Seen (0-5/HPF)
== END ==
PROVIDERS: PCP Family Medicine; Referring Provider Family Medicine; Visit Provider Family Medicine
DX: R30.0 Dysuria (principal); R35.0 Frequency of micturition; R39.15 Urgency of urination
CPT/HCPCS: 81001

== ENCOUNTER → 2024-01-01 10:31 | Outpatient (CLI) | payer BC, SELFPAY | PROVIDERS: PCP Family Medicine; Visit Provider Nurse Practitioner Family | DX: R59.9 Enlarged lymph nodes, unspecified (principal) | CPT/HCPCS: 87070 ==

== ENCOUNTER 2024-02-23 11:27 | Emergency (ER) | payer OTHER, SELFPAY ==
[2024-02-23 11:33] VITALS: BP 119/80; PULSE 72; RESP 18; TEMP 36.6; O2SAT 100; BMI 28.1
--- NOTE | 2024-02-23 12:19 | ED.EAR ---
HPI - Ear Problem <Emani Herrera PA-C - Last Filed: 02/23/24 12:50> General Chief complaint: Ear Stated complaint: RT ear pain and tingling Time Seen by Provider: 02/23/24 12:11 Source: patient Mode of arrival: Ambulatory History of Present Illness HPI Narrative: Ms. Stevenson is a pleasant 34-year-old female with a past medical history of chronic Eustachian tube dysfunction who presents to the emergency department for right ear discomfort. Patient states since November she has been struggling with right ear discomfort. States that over the last few days she has been having more pain, tingling, ?popping and fullness in her right ear. States that she had an appointment with her PCP to get her ears flushed out and cleaned however that got canceled which is what prompted her to come to the ED. She saw ENT January 22 and at that time they discussed possible sinus surgery but patient declined at the time. She was previously treated for ear infection. She is concerned that her ear could be infected again. Denies fevers, chills, nausea, vomiting, sore throat, cough, flu symptoms, drainage from the ear. She has not taken any medications prior to arrival. Related Data Home Medications Medication Instructions Recorded Confirmed multivitamin combination no.56 PO 09/03/22 01/27/24 Allergies Allergy/AdvReac Type Severity Reaction Status Date / Time ranitidine [From Zantac] Allergy Mild throat Verified 01/27/24 15:10 swelling sertraline [From Zoloft] AdvReac Severe stomach Verified 01/27/24 15:10 upset and jitters Review of Systems <Emani Herrera PA-C - Last Filed: 02/23/24 12:50> Review of Systems ROS Unobtainable: All systems reviewed & are unremarkable except as noted in HPI and below Patient History <Emani Herrera PA-C - Last Filed: 02/23/24 12:50> Medical History Contact with and (suspected) exposure to mold (toxic) Throat fullness Swallowing difficulty Right maxillary sinusitis Cervical lymphadenopathy Right otitis media Menstrual cramps Irregular periods Postoperative pain Pain of maxillary sinus Chronic eustachian tube dysfunction Chronic bilateral thoracic back pain Acute dysfunction of right eustachian tube Somatic dysfunction of lower extremity Segmental and somatic dysfunction of rib cage Upper extremity somatic dysfunction Bilateral carpal tunnel syndrome Hyperglycemia Acute left-sided thoracic back pain Skin lesions depression (~02/2016) Body posture problem Paresthesia of lower extremity (~10/2019) Neck stiffness (~10/2019) Segmental and somatic dysfunction of abdomen and other regions (~10/2019) Sacral region somatic dysfunction (~09/2019) Pelvic somatic dysfunction (~09/2019) Lumbar region somatic dysfunction (~09/2019) Thoracic region somatic dysfunction (~09/2019) Cervical somatic dysfunction (~09/2019) Cranial somatic dysfunction (~09/2019) Tension type headache (~09/2019) Chronic neck pain (~09/2019) Sinus headache Seasonal allergies (~2000) Right ear pain Somatic dysfunction of left lower extremity (~04/2019) Injury, unspecified, sequela History of gastroesophageal reflux (GERD) (~05/2018) Bacterial vaginosis (~02/2019) Generalized anxiety disorder with panic attacks (~10/2018) Anxiety with depression (~10/2018) GERD with esophagitis Gastritis Colicky epigastric pain Swallowing pain Marital dysfunction Depression (08/2018) Healthy adult Vaginal delivery (~02/2016) Surgical History [place] teeth extracted Family History Mother Age: 69 Hypertension Pacemaker Sister Age: 36 Asthma Sister Age: 37 Asthma Grandfather Pacemaker Alzheimer's dementia Diverticulitis Grandfather Cancer Grandmother Breast cancer Father No problems noted. Grandmother Cancer Social History marital status: number of children: 1 household members: spouse lives independently: Yes caregiver/support person: No housing: house pets and animals: No education level: college occupational status: unemployed and previously employed current occupational exposures/hazards: No eliane/mormonism: Jew special eliane needs: No travel history: recent seatbelt use: always Smoking Status: Never smoker second hand exposure: Yes (Grandma, but she smokes outside.) alcohol intake: former substance use type: does not use during the past year weight has: remained stable well-balanced diet: daily or most days daily servings fruits/ve-4 caffeine: No (Quit due to acid reflux. Occasional decaf.) Type(s) of exercise: walking and bicycling frequency: 3-4 times per week Smoking Status: Never smoker alcohol intake frequency: other Exam <Emani Herrera PA-C - Last Filed: 02/23/24 12:50> Narrative Exam Narrative: GENERAL: 34 year old patient appears stated age. Well-developed patient, in no acute distress. HEAD: Atraumatic. Normocephalic. EYES: Extraocular motions intact. No scleral icterus. No injection or drainage. ENT: Bilateral external ears normal. Normal ear canals bilaterally. Pearly white TMs bilaterally with normal cone of light and no erythema or bulging. No mastoid tenderness bilaterally. Nose without bleeding, purulent drainage. Throat without erythema, tonsillar hypertrophy or exudate. Airway patent. NECK: Trachea midline. Cervical ROM intact. CARDIOVASCULAR: Regular rate and rhythm. RESPIRATORY: ?Nonlabored respirations. ?Speaking in clear, full sentences. ? EXTREMITIES: No edema or joint tenderness. BACK: Nontender without deformity or crepitance. No flank tenderness. NEURO: AOx3. ?Clear speech. ?Moves all 4 extremities appropriately. SKIN: No rash or erythema of visible areas Initial Vital Signs Initial Vital Signs: Vital Signs Temperature 98 F 02/23/24 11:33 Pulse Rate 72 02/23/24 11:33 Respiratory Rate 18 02/23/24 11:33 Blood Pressure 119/80 02/23/24 11:33 Pulse Oximetry 100 02/23/24 11:33 Oxygen Delivery Method Room Air 02/23/24 11:33 <Effie Anthony MD - Last Filed: 02/23/24 13:27> Initial Vital Signs Initial Vital Signs: Vital Signs Temperature 98 F 02/23/24 11:33 Pulse Rate 72 02/23/24 11:33 Respiratory Rate 18 02/23/24 11:33 Blood Pressure 119/80 02/23/24 11:33 Pulse Oximetry 100 02/23/24 11:33 Oxygen Delivery Method Room Air 02/23/24 11:33 Course <Emani Herrera PA-C - Last Filed: 02/23/24 12:50> Vital Signs Vital signs: Vital Signs - 8 hr 02/23/24 11:33 Temperature 98 F Pulse Rate 72 Respiratory Rate 18 Blood Pressure 119/80 Pulse Oximetry 100 Oxygen Delivery Method Room Air <Effie Anthony MD - Last Filed: 02/23/24 13:27> Vital Signs Vital signs: Vital Signs - 8 hr 02/23/24 11:33 Temperature 98 F Pulse Rate 72 Respiratory Rate 18 Blood Pressure 119/80 Pulse Oximetry 100 Oxygen Delivery Method Room Air Medical Decision Making <Emani Herrera PA-C - Last Filed: 02/23/24 12:50> Medical Records Medical records reviewed: Yes I reviewed the patient's medical records. MDM Narrative Medical decision making narrative: 34-year-old female with a past medical history of chronic Eustachian tube dysfunction who presents to the emergency department for right ear discomfort. Differential diagnosis includes but is not limited to acute otitis media, acute otitis externa, sinusitis, Eustachian tube dysfunction, effusion, etc. On exam the patient is in no acute distress, nontoxic appearing, vital signs within normal limits. Bilateral ENT exam normal. Patient's symptoms are most consistent with an inner ear dysfunction such as Eustachian tube dysfunction which she does have a diagnosis of. Recommended anti-inflammatory such as ibuprofen in addition to Tylenol and Flonase and prompt follow up with her ENT doctor. No signs of infection at this time. I did also discuss possible follow up with Neurology for atypical migraine headache. Patient verbalized understanding and is in agreement to the plan. She understands there has no need to have her ears flushed today. Advised follow up with PCP and specialists as described above. She is stable for discharge at this time. Discharge Plan Departure Patient Disposition: Home Clinical Impression: Otalgia, right ear Instructions: DI for Ear Pain-Adult Activity Restrictions/Additional Instructions: Today you were evaluated for right ear discomfort. Your physical exam reveals normal right ear canal and right eardrum. I am concerned that your symptoms may be related to eustachian tube dysfunction and you should follow up with an ears nose and throat doctor for further evaluation. You may follow up with [facility] ENT at [phone], Dr. Bermeo, or another ENT doctor. You may also benefit by following up with a neurologist for further evaluation. Please take Ibuprofen (Motrin/Advil) or Acetaminophen (Tylenol) for pain. These are available over the counter. You may take Ibuprofen 600 mg every 8 hours with food for pain. You may also take Acetaminophen 650 mg every 4-6 hours for pain. Do not exceed 3000 mg of Tylenol a day as this can cause liver damage. Do not drink alcohol with either of these medications. Please also take Flonase nasal spray. Please follow up with your primary care doctor within the next 2-3 days for ER follow-up. (If you do not have a PCP you can call [phone]. ?to schedule an appointment with an [facility] Primary Care Provider) IF YOU DEVELOP ANY NEW OR WORSENING SYMPTOMS, RETURN TO THE ER! Please read the attached instructions, they highlight more specific treatments and interventions for you at home. Thank you for letting me participate in your care, Emani Herrera PA-C Prescriptions: No Action multivitamin combination no.56 PO Referrals: Gelacio Dorantes DO [Primary Care Provider] - Stand Alone Forms: Patient Portal/API/Survey ED Sign-out <Effie Anthony MD - Last Filed: 02/23/24 13:27> Cosign ED Attending Cosbisiature Attestation: I was immediately available in the department for consultation throughout this patient's visit. Effie Anthony MD
--- NOTE | 2024-02-23 12:38 | PC.NURSE ---
C/o pain, drainage, echoing in right ear. States lymph nodes on right side were swollen. No palpable swollen lymph nodes felt. Pt reports she had an appt today to but states appt as cancelled and ear pain was unbearable. Ear examine with otoscope and ear canal was clear with minima ear wax. Ear drum intact. No redness or lesions noted in throat/mouth. Pt does not admit to sinus drainage or congestion.
== END 2024-02-23 12:54 | disposition home or self-care (01) ==
PROVIDERS: Emergency Provider Physician Assistant; PCP Family Medicine
DX: H92.01 Otalgia, right ear (principal)
CPT/HCPCS: 99281

== ENCOUNTER 2024-03-26 23:37 | Emergency (ER) | payer OTHER, SELFPAY ==
[2024-03-26 23:41] VITALS: BP 134/79; PULSE 78; RESP 16; TEMP 36.8; O2SAT 99; BMI 27.8
[2024-03-27 00:13] LABS: Strep Grp A by PCR Rapid Negative (Negative)
--- NOTE | 2024-03-27 03:15 | ED.GENADULT ---
HPI - General Adult General Chief complaint: Upper Respiratory Symptoms Stated complaint: throat soar Time Seen by Provider: 03/27/24 03:14 Source: patient Mode of arrival: Ambulatory History of Present Illness HPI narrative: 34-year-old female reports ongoing problems with sinus congestion, ear pain eustachian tube problems, more recently throat discomfort, followed by Otolaryngology Dr. Hernandez, awaiting 2nd opinion regarding tympanoplasty, awaiting consult with local light bulb assembler Dr. Knox. No direct throat trauma obvious. No recent cough or shortness of breath. She can handle her secretions well, no change in voice. Moves her neck easily. Related Data Home Medications Medication Instructions Recorded Confirmed fluticasone propionate 50 2 spray intranasal DAILY 03/27/24 03/27/24 mcg/actuation nasal spray,suspension triprolidine-pseudoephedrine 1 tab PO .QD 03/27/24 03/27/24 [Antihistimine] Allergies Allergy/AdvReac Type Severity Reaction Status Date / Time ranitidine [From Zantac] Allergy Mild throat Verified 03/27/24 14:31 swelling sertraline [From Zoloft] AdvReac Severe stomach Verified 03/27/24 14:31 upset and jitters Patient History Medical History Chronic right ear pain Contact with and (suspected) exposure to mold (toxic) Throat fullness Swallowing difficulty Right maxillary sinusitis Cervical lymphadenopathy Right otitis media Menstrual cramps Irregular periods Postoperative pain Pain of maxillary sinus Chronic eustachian tube dysfunction Chronic bilateral thoracic back pain Acute dysfunction of right eustachian tube Somatic dysfunction of lower extremity Segmental and somatic dysfunction of rib cage Upper extremity somatic dysfunction Bilateral carpal tunnel syndrome Hyperglycemia Acute left-sided thoracic back pain Skin lesions depression (~02/2016) Body posture problem Paresthesia of lower extremity (~10/2019) Neck stiffness (~10/2019) Segmental and somatic dysfunction of abdomen and other regions (~10/2019) Sacral region somatic dysfunction (~09/2019) Pelvic somatic dysfunction (~09/2019) Lumbar region somatic dysfunction (~09/2019) Thoracic region somatic dysfunction (~09/2019) Cervical somatic dysfunction (~09/2019) Cranial somatic dysfunction (~09/2019) Tension type headache (~09/2019) Chronic neck pain (~09/2019) Sinus headache Seasonal allergies (~2000) Right ear pain Somatic dysfunction of left lower extremity (~04/2019) Injury, unspecified, sequela History of gastroesophageal reflux (GERD) (~05/2018) Bacterial vaginosis (~02/2019) Generalized anxiety disorder with panic attacks (~10/2018) Anxiety with depression (~10/2018) GERD with esophagitis Gastritis Colicky epigastric pain Swallowing pain Marital dysfunction Depression (08/2018) Healthy adult Vaginal delivery (~02/2016) Surgical History [place] teeth extracted Family History Mother Age: 69 Hypertension Pacemaker Sister Age: 36 Asthma Sister Age: 37 Asthma Grandfather Pacemaker Alzheimer's dementia Diverticulitis Grandfather Cancer Grandmother Breast cancer Father No problems noted. Grandmother Cancer Social History marital status: number of children: 1 household members: spouse lives independently: Yes caregiver/support person: No housing: house pets and animals: No education level: college occupational status: unemployed and previously employed current occupational exposures/hazards: No eliane/confucianism: Denominational special eliane needs: No travel history: recent seatbelt use: always Smoking Status: Never smoker second hand exposure: Yes (Grandma, but she smokes outside.) alcohol intake: former substance use type: does not use during the past year weight has: remained stable well-balanced diet: daily or most days daily servings fruits/ve-4 caffeine: No (Quit due to acid reflux. Occasional decaf.) Type(s) of exercise: walking and bicycling frequency: 3-4 times per week Smoking Status: Never smoker alcohol intake frequency: other Exam Narrative Exam Narrative: GENERAL: Well-developed patient, in mild distress. HEAD: Atraumatic. Normocephalic. EYES: Pupils equal round and reactive. Extraocular motions intact. No scleral icterus. No injection or drainage. ENT: Nose without bleeding, purulent drainage. Throat without erythema, tonsillar hypertrophy or exudate. Airway patent. NECK: Trachea midline. Non tender. No anterior neck abnormal masses, symmetrical appearing. CARDIOVASCULAR: Regular rate and rhythm without murmurs, gallops, or rubs. RESPIRATORY: Clear to auscultation. Breath sounds equal bilaterally. No wheezes, rales, or rhonchi. GASTROINTESTINAL: Abdomen soft, non-tender, nondistended. EXTREMITIES: No edema or joint tenderness. BACK: Nontender without deformity or crepitance. No flank tenderness. NEURO: AOx3. Motor functions grossly nonfocal SKIN: No rash or erythema of visible areas Initial Vital Signs Initial Vital Signs: Vital Signs Temperature 98.2 F 03/26/24 23:41 Pulse Rate 78 03/26/24 23:41 Respiratory Rate 16 03/26/24 23:41 Blood Pressure 134/79 03/26/24 23:41 Pulse Oximetry 99 03/26/24 23:41 Oxygen Delivery Method Room Air 03/26/24 23:41 Course Orders Ordered: ED Orders 03/26/24 23:45 Strep Grp A by PCR Rapid Stat Vital Signs Vital signs: Vital Signs - 8 hr 03/26/24 23:41 03/27/24 03:18 Temperature 98.2 F Pulse Rate 78 88 Respiratory Rate 16 18 Blood Pressure 134/79 126/86 Pulse Oximetry 99 97 Oxygen Delivery Method Room Air Room Air Medical Decision Making Lab Data Labs: Lab Results 03/26/24 Range/Units 23:45 Group A Strep (PCR) Negative (Negative) MDM Narrative Medical decision making narrative: Throat discomfort, ongoing problems with eustachian dysfunction awaiting 2nd opinion alternate otolaryngology consultation. Strep screen negative. When offered patient declines COVID/flu swab screening. No distress, no anterior palpable lymph nodes or neck masses. Controlling secretions well. Advanced imaging CT soft tissue neck not indicated at this time. Advised to follow up with Otolaryngology as planned, can continue her Flonase and chronic ear nose throat related medication regimen for now. Discharge Plan Departure Patient Disposition: Home Clinical Impression: Throat discomfort Activity Restrictions/Additional Instructions: Throat discomfort, sensation of tightening, normal phonation, moves neck well, no obvious masses or abnormal anterior neck examination, normal range of motion neck, handling secretions well. Strep screen swab negative. Offered screening for COVID/influenza, declined. Ongoing ear popping sensation, awaiting 2nd opinion otolaryngology consultation, as you apparently had tympanoplasty recommendation, and will seek consultation with Dr. Knox to see if this is how you might want to proceed. Continue your Flonase medication for now. Follow up with your light bulb assembler as planned. Sometimes they might provide flexible nasopharyngoscopy if your symptoms were to persist. Take [id number] Tylenol and or Motrin for discomfort at this time. Prescriptions: No Action fluticasone propionate 50 mcg/actuation spray,suspension 2 spray intranasal DAILY Rx Instructions: administer into each nostril triprolidine-pseudoephedrine [Antihistimine] 1 tab PO .QD Referrals: Alonso Knox MD [Physician] - Gelacio Dorantes DO [Primary Care Provider] - Stand Alone Forms: Patient Portal/API/Survey
[2024-03-27 03:18] VITALS: BP 126/86; PULSE 88; RESP 18; O2SAT 97
== END 2024-03-27 03:32 | disposition home or self-care (01) ==
PROVIDERS: Emergency Provider Emergency Medicine; PCP Family Medicine
DX: J02.9 Acute pharyngitis, unspecified (principal)
CPT/HCPCS: 87651; 99281; 99282

== ENCOUNTER → 2024-05-11 13:34 | Outpatient (CLI) | payer OTHER, SELFPAY | LOC: LAB 14:07 | PROVIDERS: PCP Family Medicine; Visit Provider Physician Assistant | DX: N89.8 Other specified noninflammatory disorders of vagina (principal) | CPT/HCPCS: 87210 ==

== ENCOUNTER → 2024-05-16 11:38 | Outpatient (CLI) | payer OTHER, SELFPAY ==
[2024-05-16 13:53] LABS: Urine N gonorrhoeae NOT DETECTED
[2024-05-16 13:54] LABS: Urine Chlamydia NOT DETECTED
== END ==
PROVIDERS: PCP Family Medicine; Referring Provider Physician Assistant; Visit Provider Physician Assistant
DX: N89.8 Other specified noninflammatory disorders of vagina (principal)
CPT/HCPCS: 87491; 87591

== ENCOUNTER → 2024-06-29 11:17 | Outpatient (CLI) | payer OTHER, SELFPAY | PROVIDERS: PCP Family Medicine; Visit Provider Family Medicine | DX: N76.0 Acute vaginitis (principal); B96.89 Other specified bacterial agents as the cause of diseases classified elsewhere; N89.8 Other specified noninflammatory disorders of vagina | CPT/HCPCS: 87210; 87220 ==

== ENCOUNTER → 2024-07-05 11:16 | Outpatient (CLI) | payer OTHER, SELFPAY ==
--- NOTE | 2024-07-05 11:19 | DI.US.S_ITS ---
PROCEDURE: US PELVIC COMPLETE INDICATIONS: PAIN TECHNIQUE: Real-time scanning was performed of the pelvic organs, with image documentation. Additional endovaginal scanning was necessary due to incomplete visualization of the adnexal and endometrial structures by transabdominal scanning. COMPARISON: [facility], US, US PELVIC COMPLETE, 11/13/2021, 14:24. FINDINGS: Uterus: Uterus is anteverted and normal in size at 8.4 x 4.4 x 5.7 cm. The myometrium is homogeneous. The endometrium measures 6.9 mm combined thickness. Ovaries: The right ovary measures 1.3 x 2.5 x 1.7 cm, with a calculated ovarian volume of 2.8 cc. The left ovary measures 2.0 x 3.0 x 1.8 cm, with a calculated ovarian volume of 5.8 cc. The ovaries have a normal sonographic appearance. Less than 12 follicles can be seen in each ovary. No adnexal masses are seen. Other: Small fluid within the posterior cul-de-sac, likely physiologic. IMPRESSION: Normal appearance of the uterus and ovaries. No cause for patient's pain is identified. We strive to produce accurate, complete, and clear reports of imaging services. To assist us in improving patient care, this report was composed using standard report templates and voice recognition software. Therefore, it may contain abnormal punctuation, insertions and/or omissions. Occasional wrong-word or sound-alike substitutions may occur. Though we review the report and make efforts to correct it, we do recommend that the report be read carefully in proper context to recognize any text inaccuracies. Dictated by: Manfred Katz M.D. on 07/05/2024 at 14:17 Approved by: Manfred Katz M.D. on 07/05/2024 at 14:20
== END ==
PROVIDERS: PCP Family Medicine; Referring Provider Family Medicine; Visit Provider Family Medicine
DX: R10.9 Unspecified abdominal pain; R10.2 Pelvic and perineal pain
CPT/HCPCS: 76830; 76856; 93975

== ENCOUNTER → 2024-07-06 06:53 | Outpatient (CLI) | payer OTHER, SELFPAY ==
--- NOTE | 2024-07-06 06:54 | DI.US.S_ITS ---
PROCEDURE: US RENAL COMPLETE INDICATIONS: ABDOMINAL PAIN - RULE OUT BLADDER ABNORMALITIES TECHNIQUE: Real-time scanning was performed of the kidneys and bladder, with image documentation. COMPARISON: [facility], CT, CT ABDOMEN PELVIS W CON, 12/28/2018, 12:29. FINDINGS: Kidneys: Right kidney measures 11.1 cm long; left kidney measures 11.7 cm long. Right renal cortical thickness is 1.4 cm; left renal cortical thickness is 1.4 cm. Renal cortical echotexture is normal. No hydronephrosis or nephrolithiasis. No suspicious solid mass lesions. Bladder: Pre-void bladder volume is 357 mL. Post-void residual is 11 mL. Pre-void images demonstrate no intraluminal masses or stones. On pre-void images, bilateral ureteral jets are noted with color Doppler interrogation. (Of note, ureteral jets may not be detectable in up to 25% of cases due to insufficient differences in specific gravity between ureteral and bladder urine). Miscellaneous: No free pelvic fluid. IMPRESSION: Unremarkable exam. No significant postvoid residual. Dictated by: Meghan Vang M.D. on 07/06/2024 at 10:40 Approved by: Meghan Vang M.D. on 07/06/2024 at 10:41
== END ==
PROVIDERS: PCP Family Medicine; Referring Provider Family Medicine; Visit Provider Family Medicine
DX: R10.2 Pelvic and perineal pain (principal); R10.9 Unspecified abdominal pain; R39.89 Other symptoms and signs involving the genitourinary system
CPT/HCPCS: 76770